=== PATIENT | female | born 1960 | race Caucasian/White ===

== ENCOUNTER 2024-03-04 07:00 | Outpatient (CLI) | payer OTHER, SELFPAY ==
--- NOTE | 2024-03-04 07:15 | CRLHL7_ITS ---
For Patients: As a result of the 21st Century Cures Act, medical imaging exams and procedure reports are released immediately into your electronic medical record. You may view this report before your referring provider. If you have questions, please contact your health care provider. EXAM: MRI OF THE RIGHT KNEE, WITHOUT CONTRAST CLINICAL INDICATION: Knee pain following injury. COMPARISON PLAIN FILMS: None available at time of interpretation. COMPARISON CROSS-SECTIONAL IMAGING STUDIES: None available at time of interpretation. TECHNICAL: Axial, sagittal and coronal T1, PD, PD FS and T2 FS images. Knee coil. FINDINGS: MEDIAL COMPARTMENT: Medial Meniscus: Slight fraying and volume loss in the free edge of the body of the medial meniscus. No linear tear in the substance of the medial meniscus. The root attachments are intact. Articular Cartilage: Articular surfaces appear smooth without focal articular cartilage defect or subchondral marrow changes. - LATERAL COMPARTMENT: Lateral Meniscus: Normal size and morphology without tear. Articular Cartilage: Articular surfaces appear smooth without focal articular cartilage defect or subchondral marrow changes. - PATELLOFEMORAL COMPARTMENT: Articular Cartilage: Moderate thinning with focal full-thickness fissuring in the inferior aspect of the trochlear groove with mild subchondral cystic change (grade 3-4). Mild chondral fraying in the patellar apex (grade 2). - CRUCIATE LIGAMENTS: Anterior Cruciate Ligament: Normal. Posterior Cruciate Ligament: Normal. - MEDIAL COLLATERAL LIGAMENT AND POSTEROMEDIAL CORNER COMPLEX: Medial Collateral Ligament: Normal. Medial Head of the Gastrocnemius and Semimembranosus Tendons: Normal. - LATERAL COLLATERAL LIGAMENT COMPLEX AND POSTEROLATERAL CORNER COMPLEX: Fibular Collateral Ligament: Normal. Distal Biceps Femoris Tendon Complex: Normal. Iliotibial Band: Normal. Popliteus Tendon: Normal. Posterolateral Corner Capsule: Normal. - EXTENSOR MECHANISM: Distal Quadriceps Tendon: Normal. Patellar Tendon: Normal. Medial Patellar Retinaculum and Medial Patellofemoral Ligament: Normal. Lateral Patellar Retinaculum: Normal. Normal patellar alignment. No patella mahi. Normal trochlear depth. Normal lateral trochlear inclination. - JOINT SPACE: Effusion: Trace joint effusion. Mild edema in the suprapatellar fat pad. Joint Bodies: None seen. - OSSEOUS STRUCTURES: No fracture, marrow edema or marrow replacement process. Benign bone island in the lateral femoral condyle. - PERIARTICULAR SOFT TISSUES: Periarticular Cysts or Ganglia: None. Bursae: No prepatellar, superficial infrapatellar, deep infrapatellar, pes anserinus or semimembranosus/MCL bursitis. Musculature: No muscle atrophy or muscle edema. Subcutaneous and Soft Tissues: No subcutaneous or soft tissue mass, edema or fluid collection. Neurovascular Structures: Normal. IMPRESSION: 1. Fraying and volume loss in the free edge of the body of the medial meniscus. 2. 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 3. Trace knee joint effusion. 4. Mild edema in the suprapatellar fat pad. Dictated by Cm Giang MD @ 03/04/2024 9:57:26 AM (Electronically Signed)
== END 2024-03-04 07:01 | disposition home or self-care (01) ==
LOC: MRI 07:00
PROVIDERS: PCP Internal Medicine; Visit Provider Internal Medicine
DX: M25.561 Pain in right knee (principal); M94.261 Chondromalacia, right knee; M25.461 Effusion, right knee; S89.91XA Unspecified injury of right lower leg, initial encounter
CPT/HCPCS: 73721

== ENCOUNTER 2024-03-04 08:31 | Outpatient (CLI) | payer OTHER, SELFPAY | END 2024-03-04 08:32 | disposition home or self-care (01) | LOC: NFLDREF 03-12 12:12 | PROVIDERS: PCP Internal Medicine; Referring Provider Internal Medicine; Visit Provider Internal Medicine | DX: E11.9 Type 2 diabetes mellitus without complications (principal) | CPT/HCPCS: 80053; 80061 ==

== ENCOUNTER 2024-04-01 13:35 | Outpatient (RCR) | payer OTHER, SELFPAY | END 2024-07-30 23:59 | disposition home or self-care (01) | PROVIDERS: PCP Internal Medicine; Visit Provider Orthopaedic Surgery | DX: M17.11 Unilateral primary osteoarthritis, right knee (principal); M25.561 Pain in right knee; Z51.89 Encounter for other specified aftercare | CPT/HCPCS: 97110; 97161 ==

== ENCOUNTER 2024-04-02 09:00 | Outpatient (CLI) | payer OTHER, SELFPAY | END 2024-04-02 09:01 | disposition home or self-care (01) | LOC: NFLDREF 04-04 03:04 | PROVIDERS: PCP Internal Medicine; Referring Provider Internal Medicine; Visit Provider Internal Medicine | DX: Z13.29 Encounter for screening for other suspected endocrine disorder (principal) | CPT/HCPCS: 84443 ==

== ENCOUNTER 2024-07-17 12:57 | Outpatient (CLI) | payer OTHER, SELFPAY ==
--- NOTE | 2024-07-17 13:00 | CRLHL7_ITS ---
For Patients: As a result of the Century Cures Act, medical imaging exams and procedure reports are released immediately into your electronic medical record. You may view this report before your referring provider. If you have questions, please contact your health care provider. Indication: Chronic sinusitis Technique: Performed without IV contrast Comparison: None available Findings: Frontal sinuses: Mild mucosal thickening bilaterally. Ethmoid sinuses: Postop changes ethmoidectomy. Maxillary sinuses: Postop changes. Mucous retention cyst right maxillary sinus measures approximately 2.5 cm. Moderate mucosal thickening within the right maxillary sinus. Xwec-fc-terpkiem mucosal thickening left maxillary sinus. Sinus drainage pathways are clear. Sphenoid sinuses: Clear, including both sphenoethmoidal recesses. Nasal Cavity: Postop changes. Hypertrophy of the inferior turbinate mucosa. No TMJ abnormalities identified. The visualized portions of the orbits, intracranial contents and upper soft tissue neck are grossly negative. Impression: 1. Postoperative changes. Sinus drainage pathways are patent. 2. Bilateral maxillary sinus disease with right-sided mucous retention cyst. Please note that all CT scans at this facility use dose modulation, iterative reconstruction, and/or weight-based dosing when appropriate to reduce radiation dose to as low as reasonably achievable. Dictated by Donnie Loza MD @ 07/17/2024 1:38:02 PM (Electronically Signed)
== END 2024-07-17 12:58 | disposition home or self-care (01) ==
LOC: CT 12:58
PROVIDERS: PCP Internal Medicine; Visit Provider Internal Medicine
DX: J32.9 Chronic sinusitis, unspecified (principal); J32.0 Chronic maxillary sinusitis
CPT/HCPCS: 70486

== ENCOUNTER 2024-10-27 08:05 | Outpatient (CLI) | payer OTHER, SELFPAY ==
--- NOTE | 2024-10-27 08:15 | CRLHL7_ITS ---
For Patients: As a result of the Century Cures Act, medical imaging exams and procedure reports are released immediately into your electronic medical record. You may view this report before your referring provider. If you have questions, please contact your health care provider. INDICATION: BILATERAL SCREENING MAMMOGRAM, ASYMPTOMATIC 64 Y/O FEMALE COMPARISON: 10/23/2018, 08/31/2016 TECHNIQUE: Digital mammogram in CC and MLO projections including computer-aided detection (CAD) and tomosynthesis. BREAST COMPOSITION: There are scattered areas of fibroglandular density. FINDINGS: No suspicious findings. ASSESSMENT: BI-RADS 1 Negative RECOMMENDATION: Annual screening mammogram. A lay language report of this examination will be provided to the patient. Dictated by: Donnie Loza MD @ 11/02/2024 10:28:22 (Electronically Signed)
== END 2024-10-27 08:06 | disposition home or self-care (01) ==
LOC: MAMMO 08:05
PROVIDERS: PCP Internal Medicine; Visit Provider Internal Medicine
DX: Z12.31 Encounter for screening mammogram for malignant neoplasm of breast (principal)
CPT/HCPCS: 77063; 77067

== ENCOUNTER 2024-10-30 07:25 | Day surgery (SDC) | payer OTHER, SELFPAY ==
[2024-10-30] VITALS (17 sets, daily range): BP systolic 91–119; BP diastolic 51–79; PULSE 16–74; RESP 11–17; TEMP 36.1–36.2; O2SAT 92–97; BMI 33.2
[2024-10-30] MEDS: SODIUM CHLORIDE 0.9 % (FLUSH) 10 ML SYRINGE IVF (08:10)
[2024-10-30] MEDS: LACTATED RINGERS 1000 ML 1,000 ML 100 ML IV (08:10)
--- NOTE | 2024-10-30 10:01 | P.ANES_ITS ---
Anesthesia Charges Start Date/Time Anesthesia Start Date: 10/30/24 Anesthesia Start Time: 09:34 Stop Date/Time Anesthesia Stop Date: 10/30/24 Anesthesia Stop Time: 10:18 Coding CPT Codes CPT Codes: ANESTH NOSE/SINUS SURGERY - 85295 ([id number]) P2 - PATIENT W/MILD SYST DISEASE, QK - MEDICAL OFFICE ADMINISTRATOR 2-4 CNCRNT ANES PROC, QX - SCRIPT EDITOR SVC W/ MD MED DIRECTION
--- NOTE | 2024-10-30 10:01 | W.ANESCHARGE ---
Anesthesia Charges Start Date/Time Anesthesia Start Date: 10/30/24 Anesthesia Start Time: 09:34 Stop Date/Time Anesthesia Stop Date: 10/30/24 Anesthesia Stop Time: 10:18 Coding CPT Codes CPT Codes: ANESTH NOSE/SINUS SURGERY - 38545 ([id number]) P2 - PATIENT W/MILD SYST DISEASE, QK - PROCESS CONTROL TECH 2-4 CNCRNT ANES PROC, QX - ROAD COMMISSIONER SVC W/ MD MED DIRECTION
--- NOTE | 2024-10-30 10:11 | W.PM.ENTPROC ---
Procedure Note Date of procedure: 10/30/24 Procedure: Preop diagnosis symptomatic right antral mucous retention cyst Postoperative diagnosis same Procedure right maxillary antrostomy with tissue removal and removal of right antral mucous retention cyst Under general endotracheal anesthesia patient was prepped and draped in usual fashion. Image guidance was verified. The nose was decongested with cocaine pledgets and then injected at the around the natural os and the anterior head of the right middle turbinate. The 0 degree endoscope was used to enter the sinus. The opening was partially occluded by polypoid tissue which was removed. Void forceps was then placed in through the natural os and the mucous retention cyst removed if Mom a mostly intact. Additional the polypoid mucosa was removed from the floor of the sinus. Dissolvable gel pack was placed in the middle meatus. The patient procedure well was taken recovery in satisfactory condition blood loss was less than 10 mL. Surgeon: Dennis Desai MD
--- NOTE | 2024-10-30 10:17 | P.ANES_ITS ---
Anesthesia Charges Start Date/Time Anesthesia Start Date: 10/30/24 Anesthesia Start Time: 09:34 Stop Date/Time Anesthesia Stop Date: 10/30/24 Anesthesia Stop Time: 10:18 Coding CPT Codes CPT Codes: ANESTH NOSE/SINUS SURGERY - 19679 ([id number]) P2 - PATIENT W/MILD SYST DISEASE, QK - RN PERITONEAL DIALYSIS 2-4 CNCRNT ANES PROC, QX - TRACK GRINDER OPERATOR SVC W/ MD MED DIRECTION
--- NOTE | 2024-10-30 10:17 | W.ANESCHARGE ---
Anesthesia Charges Start Date/Time Anesthesia Start Date: 10/30/24 Anesthesia Start Time: 09:34 Stop Date/Time Anesthesia Stop Date: 10/30/24 Anesthesia Stop Time: 10:18 Coding CPT Codes CPT Codes: ANESTH NOSE/SINUS SURGERY - 68870 ([id number]) P2 - PATIENT W/MILD SYST DISEASE, QK - MACARONI PRESS OPERATOR 2-4 CNCRNT ANES PROC, QX - ENGAGEMENT EXECUTIVE SVC W/ MD MED DIRECTION
[2024-10-30] MEDS: ONDANSETRON 2 MG/ML inj 4 MG IVP (10:26)
== END 2024-10-30 12:23 | disposition home or self-care (01) ==
PROVIDERS: PCP Internal Medicine; Visit Provider Otolaryngology
PROC: (CPT 31231; principal; 2024-10-30 08:45)
DX: J34.1 Cyst and mucocele of nose and nasal sinus (principal); J33.8 Other polyp of sinus
CPT/HCPCS: 31267; 00160; 88305; J0330; J1100; J1630; J2250; J2371; J2405; J2704; J3010; J3490; J7120

== ENCOUNTER 2025-01-12 07:56 | Outpatient (CLI) | payer OTHER, SELFPAY | END 2025-01-12 07:57 | disposition home or self-care (01) | LOC: NFLDREF 01-16 18:25 | PROVIDERS: PCP Internal Medicine; Referring Provider Internal Medicine; Visit Provider Internal Medicine | DX: E78.5 Hyperlipidemia, unspecified (principal) | CPT/HCPCS: 80061 ==

== ENCOUNTER 2025-02-09 21:02 | Emergency (ER) | payer OTHER, SELFPAY ==
[2025-02-09] VITALS (8 sets, daily range): BP systolic 115–128; BP diastolic 65–83; PULSE 84–107; RESP 20; TEMP 37.3; O2SAT 85–92; BMI 31.7
--- OUTSIDE RECORDS SUMMARY | 2025-02-09 21:04 | XMS_ITS | Clinical Summary ---
Author Organization [facility]ly [facility] Address [address] [address] Care Team Providers Care Welding Machine Operator Ultr[employer]ic Name Role Phone Marcie Munguia MD Primary Care Provider [phone] Source Comments You are receiving this document as you are listed as the primary care provider,follow-up provider, or the patient has been referred to you for consultation.This is in compliance with the Medicare andMedicaid EHR Incentive Program,which states Providers who transition their patient to another setting of careor provider of care or refers their patient to another provider of care shouldprovide summary care record for each transition of care or referral. [employer] TechnologiesNew [facility] CenterRound[facility] Allergies Active AllergyReactionsCriticalityNoted DateCommentsMolds & Smuts01/29/2011Other 06/09/2013 PN: Feathers Medications MedicationSigDispense QuantityRefillsLast FilledStart DateEnd DateStatus sertraline (ZOLOFT) 50 MG tablet Indications:Major depressive disorder, recurrent episode, moderate (HRC)TAKE 2 TABLETS BY MOUTH ONCE DAILY. 180 tablet ctive Biotin 5 MG Take 1 capsule by mouth daily (every 24 hours).08/15/2015Active fluticasone (FLONASE) 50 MCG/ACT nasal solution Place 2 sprays into each nostril daily (every 24 hours). Dose is for each nostril.08/15/2015Active ketoconazole (NIZORAL) 2 % shampoo Apply topically twice a week.08/15/2015Active polyethylene glycol (MIRALAX) packet Take 17 g by mouth daily (every 24 hours).08/15/2015Active docusate sodium (COLACE) 100 MG capsule Take 100 mg by mouth 2 times daily as needed for Constipation.08/15/2015Active ketoconazole (NIZORAL) 2 % cream Apply topically daily (every 24 hours).08/15/2015Active HYDROcodone-acetaminophen (NORCO) 5-325 MG tablet Take 1-2 tablets by mouth every 4 hours as needed. 30 tablet Active Active Problems ProblemNoted DateDiagnosed DateAcute pulmonary naxrphmb55/12/2014Fracture of 5th mwxbikvxaj52/12/4023Ylqcngho21/22/2012 Overview (10/10/2016): Headache(784.0) Incontinence of urine04/12/2011Disease of lung07/24/2010 Overview (10/10/2016): LW Modifier: CT due 04/2010 ; Pulmonary Nodule Solitary Disorder of liver07/24/2010 Overview (10/10/2016): LW Modifier: MRI 03/2010 ; Mass Hepatic Bsdghbh3307/24/2010Major depressive disorder, recurrent episode, moderate 01/02/2005 Overview (10/10/2016): Depression Major Recurrent Moderate Allergic /19/2005 Overview (10/10/2016): LW Onset: 83Qet87 ; Allergy Seasonal Hearing loss07/25/2002 Overview (10/10/2016): Hearing Loss NOS Obesity Resolved Problems ProblemNoted DateDiagnosed DateResolved LdauYxsuaxwhd32 Overview (10/10/2016): Varicella Zoster Normal vdedbntf24 Overview (10/10/2016): LW Modifier: x2 ; Normal Spontaneous Vaginal Delivery Immunizations ImmunizationAdministration DatesNext DueFlu Vac Preserv Free (3+yrs)12/24/2007 H1n1 Miv Sanofi 3+ Yr (Injected)03/24/2009HepB Adult (Engerix-B, 20+ yrs, 3 dose series)01/02/2005,05/24/1998HepB Ped/Adol (0-18 yrs)03/24/2009TDAP (ADACEL) 12/24/2007Td08/25/1996Zoster (Zostavax)08/26/2012 Family History Medical HistoryRelationNameCommentsCancer, ColonBirth FatherParkinsonsBirth FatherCancerBirth MotherlymhomaStrokeBirth Motherduring diagnosis of lymphoma Cardiovascular DiseaseMaternal Grandmotherstroke after lymphoma diagnosisCancer, BreastNegative Family HistoryDVT/PENegative Family HistoryRelationNameStatus CommentsBirth FatherDeceasedBirth MotherDeceasedMaternal GrandmotherOther Social History Tobacco UseTypesPacks/DayYears UsedDateSmoking Tobacco: NeverSmokeless Tobacco: NeverAlcohol UseStandard Drinks/WeekCommentsYes0.8 (1 standard drink = 0.6 oz pure alcohol)Alcoholic Drinks/day: Amount:1-2 drinks; Freq:=< Monthly; CommentsNoSex and Gender InformationValueDate RecordedSex Assigned at BirthNot on fileLegal NnuBmvbbf03/10/2012 4:33 AM CDTGender IdentityNot on fileSexual OrientationNot on fileOccupationIndustryJob Start DateJob End DateFinance industryNot on fileNot on fileNot on file Last Filed Vital Signs Vital SignReadingTime TakenCommentsBlood Xeorojfr888/8301/31/2016 12:14 PM OIL AND GAS FIELD TECHNICIAN Ylbkm349201/31/2016 12:14 PM ATXPyjynvyhcvm59.1 ??C (97 ??F)01/31/2016 12:14 PM CSTRespiratory Tarj544404/02/2015 12:14 PM CSTOxygen Evwrpvvptl11%07/02/2013 10:42 AM CDTInhaled Oxygen Concentration--Pzfnss210.4 kg (250 lb)08/17/2015 8:41 AM TOYQhwthm826.8 cm (5' 10)08/17/2015 8:41 AM CDTBody Mass Index35.8708/17/2015 8:41 AM CDT Plan of Treatment Health MaintenanceDue DateLast DoneCommentsHep C Screening (Preventive Services) 2Adult Preventive Visit02/23/19790182Aywgzqvbwls93, 05/16/2006HepB Vaccine (3), 01/02/2005, 05/24/1998 Pneumococcal Vaccine 50+ Yrs (1 of 1 - PCV)2011Cervical Cancer Screening Due, 03/24/2009, 12/24/2007, Additional history exists Zoster/Shingles Vaccine (2 of 3)Mammogram04/22/2014 04/22/2013, 05/03/2011, 03/24/2009, Additional history existsCholesterol , 03/24/2009, 09/29/2001DTaP/Tdap/Td Vaccine (2 - Tdap) , 08/25/1996COVID-19 Vaccine (1 - 2024- season)2024 Influenza Vaccine (#1)RSV Vaccine (1 - 1-dose 75+ series) 02/24/2036HIV Screening (Preventive Services)Gnvgviilu45/11/2004HepA VaccineAged OutNo longer eligible based on patient's age to complete this topicHib Vaccine Aged OutNo longer eligible based on patient's age to complete this topicIPV (Polio) VaccineAged OutNo longer eligible based on patient's age to complete this topicMCV4 VaccineAged OutNo longer eligible based on patient's age to complete this topicMeningococcal B VaccineAged OutNo longer eligible based on patient's age to complete this topic Procedures Procedure NamePriorityDate/TimeAssociated DiagnosisCommentsMM MAMMOGRAM SCREENING BILAT W AWPHfpojuo85/05/2014 8:18 AM OIL AND GAS FIELD TECHNICIAN Screening for breast cancer ANATOMICAL PATH LIQUID RTHKFPzwroam98/23/2012 3:05 PM OIL AND GAS FIELD TECHNICIAN LIPID PANEL & DIRECT LDL (IF NEEDED)Umfhmfb9907/18/2010 5:39 AM CDT ENDOSCOPY, COLON, SCREENING/PEFIUDXVLSMxkdqsb37/08/2010 5:48 PM CSTHIV ANTIBODY Hhysngu7211/29/2003 4:27 PM CDT from Last 3 Months or Most Recently Relevant to Health Maintenance Results * MM Mammogram Screening Bilat W CAD (04/22/2013 8:18 AM OIL AND GAS FIELD TECHNICIAN)Anatomical Region LateralityModalityBreastBilateralMammographySpecimen (Source)Anatomical Location / LateralityCollection Method / VolumeCollection TimeReceived Time Impressions 04/22/2013 9:04 AM OIL AND GAS FIELD TECHNICIAN : BIRADS 1 Negative (overall) Follow Up Mammogram in 1 year - Both The results and recommendations of this examination will be communicated to the patient by the [facility] and we will attempt to schedule any recommended imaging follow up with the patient. BJ Narrative 04/22/2013 9:04 AM OIL AND GAS FIELD TECHNICIAN Compared to: 05/03/2011 MM MAMMOGRAM DIGITAL SCRN W CAD, 03/24/2009 MM MAMMOGRAM DIGITAL SCRN W CAD, 06/07/2007 MM MAMMOGRAM DIGITAL SCRN W CAD Bilateral Breast Findings: The breasts are heterogeneously dense (51-75% fibroglandular). No significant mass, calcifications or other abnormalities are seen in either breast. Procedure Note Andrew Amado MD - 10/18/2015 Compared to: 05/03/2011 MM MAMMOGRAM DIGITAL SCRN W CAD, 03/24/2009 MM MAMMOGRAM DIGITAL SCRN W CAD, 06/07/2007 MM MAMMOGRAM DIGITAL SCRN W CAD Bilateral Breast Findings: The breasts are heterogeneously dense (51-75% fibroglandular). No significant mass, calcifications or other abnormalities are seen in either breast. IMPRESSION : BIRADS 1 Negative (overall) Follow Up Mammogram in 1 year - Both The results and recommendations of this examination will be communicated to the patient by the [facility] and we will attempt to schedule any recommended imaging follow up with the patient. BJ Authorizing ProviderResult TypeResult StatusLeslie A Trcka MDRAD MAMFinal Result * Pap Smear (04/12/2011 3:05 PM OIL AND GAS FIELD TECHNICIAN)Specimen (Source)Anatomical Location / LateralityCollection Method / VolumeCollection TimeReceived Time04/12/2011 3:05 PM OIL AND GAS FIELD TECHNICIAN Narrative HP CONVERSION - 04/18/2011 9:23 AM OIL AND GAS FIELD TECHNICIAN Final GYNECOLOGICAL CYTOLOGY REPORT Pathology #: [id number] ?Date Obtained: 04/12/2011 ? Date Received: 04/13/2011 INTERPRETATION/RESULTS: Negative for Intraepithelial Lesion or Malignancy SPECIMEN ADEQUACY: Satisfactory for Evaluation. ??Endocervical cells/transformation zone component present. Verified on 04/18/2011 ??by JAY MILLS(ASCP) (electronic signature) CLINICAL NOTES: ? LMP: not stated. LIQUID BASED PAP SMEAR SPECIMEN TYPE: ?CERVICAL WITH REFLEX TO HPV IF ASCUS PLEASE NOTE: The pap smear is a screening test designed to aid in the detection of cervical cancer and its precursor lesions. It is not a diagnostic procedure and should not be used as the sole means of detecting cervical cancer. Both false-positive and false-negative reports may occur. ? End of Report Authorizing ProviderResult TypeResult StatusSuad Dow MDLAB_1Final ResultPerforming OrganizationAddressCity/State/ZIP CodePhone Number HP CONVERSION * (ABNORMAL) Lipid Panel and Direct LDL(If Needed) (07/18/2010 5:39 AM CDT) ComponentValueRef RangeTest MethodAnalysis TimePerformed AtPathologist UeglntyvqUlkgnvvloco1696 - 200 mg/dLHP MDWWUNJEPAVdahhbbduewbq827 - 149 mg/dL HP CONVERSIONHDL Lwmyymlyskz91(L)>39 mg/dLHP CONVERSIONCholesterol/HDL Ratio Screen5.0No normal rangeHP CONVERSIONLDL Vpwjeumvek8441 - 130 mg/dLHP CONVERSIONSpecimen (Source)Anatomical Location / LateralityCollection Method / VolumeCollection TimeReceived Time07/18/2010 5:39 AM CDT Narrative Authorizing ProviderResult TypeResult StatusDastacy Carrillo MDLAB_1Final Result Performing OrganizationAddressCity/State/ZIP CodePhone Number HP CONVERSION * Endoscopy, colon, diagnostic (03/28/2009 5:48 PM OIL AND GAS FIELD TECHNICIAN)Anatomical Region LateralityModalityOtherSpecimen (Source)Anatomical Location / Laterality Collection Method / VolumeCollection TimeReceived Time Narrative Authorizing ProviderResult TypeResult StatusUser ConversionET GI PROCEDURE ORDERABLESFinal Result * HIV Antibody (11/29/2003 4:27 PM CDT)ComponentValueRef RangeTest Method Analysis TimePerformed AtPathologist SignatureHIV 1/HIV 2Non ReacNon ReacHP CONVERSIONSpecimen (Source)Anatomical Location / LateralityCollection Method / VolumeCollection TimeReceived Time11/29/2003 4:27 PM CDT Narrative Authorizing ProviderResult TypeResult StatusTricia L Zubert ELECTRIC RANGE PREPARER, CNPLAB_1Final ResultPerforming OrganizationAddressCity/State/ZIP CodePhone Number HP CONVERSION from Last 3 Months or Most Recently Relevant to Health Maintenance Insurance * Guarantor: Evita Martin TypeRelation to PatientDate of BirthPhone Billing AddressPersonal/MwtopdElgf02/06/1961 [phone] (Work) [address] [place] [address] [place] [address] * Guarantor: Evita Martin TypeRelation to PatientDate of BirthPhone Billing AddressPersonal/FdfnubWtlo56/06/1961 [phone] (Work) [address] [place] [address] * Guarantor: [id number] TypeRelation to PatientDate of BirthPhone Billing AddressMVA/OOVAodn1960 [phone] (Work) [address] [place] [address] * Guarantor: Evita Martin TypeRelation to PatientDate of BirthPhone Billing AddressMVA/RFQWmbh31 1960 [phone] (Work) [address] [place] [address] * Guarantor: Evita Martin TypeRelation to PatientDate of BirthPhone Billing AddressWorkers UznkNcsz42/06/1961 [phone] (Work) [address] [place] [address] Advance Directives * Full Code (Latest Code Status on File) Date ActivatedDate InactivatedComments08/17/2015 10:35 AM08/17/2015 2:16 PM * Full Code Date ActivatedDate InactivatedComments06/29/2013 9:15 PM07/02/2013 6:08 PM Care Teams Team MemberRelationshipSpecialtyStart DateEnd Date Marcie Munguia MD [address] [place] [address] [facility]05/21/10
--- OUTSIDE RECORDS SUMMARY | 2025-02-09 21:04 | XMS_ITS | Clinical Summary ---
Author Organization [facility] Address [address] [address] Phone Care Team Providers Care Automation Qtp Tester Name Role Phone Víctor Bergman APRN, ANIMAL SHELTER SUPERVISOR Primary Care Provi xochilt Evita Mckeon MD Unavailable [phone] Allergies Active AllergyReactionsCriticalityNoted IgbmQablvnqnLeirveinuugfc55/20/2016 Mold and feathers per patient report, based on allergy testing. Medications MedicationSigDispense QuantityRefillsLast FilledStart DateEnd DateStatus sertraline (Zoloft) 100 MG tablet Indications:AnxietyTake 1 Tab by mouth one time a day. 90 Tab Active ketoconazole (Nizoral) 2 % shampoo Indications:Seborrheic eczema of scalpAPPLY EXTERNALLY TO THE AFFECTED AREA EVERY 72 HOURS. LEAVE ON FOR 5 MINUTES, THEN RINSE 6 Bottle 11011/17/2019Active Active Problems Patient Care Coordination No te Formatting of this note migh t be different from the original. Abnormal pap follow up: 10/2019 - due for cotesting 10/2022 ProblemNoted DateDiagnosed DateHistory of abnormal cervical Pap smear09/25/2018 Overview (11/24/2019): 05/2014:NILM,HPV negative 08/2018: LGSIL, HPV negative 10/2019:NILM,HPV negative Hammer toe of right foot08/01/2015Seborrheic eczema of scalp06/08/2015 Hypovitaminosis D006/08/20153252Ovvzgby05/29/2518Yaqqodawotiinh67/29/2014 Resolved Problems ProblemNoted DateDiagnosed DateResolved DateHammer toeBurn involving less than 10% of body ezeikzs45 Immunizations ImmunizationAdministration DatesNext DueHepatitis B, Adult03/24/2009,01/02/2005, 05/24/1998Influenza Quad Preservative Free11/17/2019Tdap (7 years and older) 03/20/2018,12/24/2007,08/25/1996Zoster Zostavax (Shingles)08/26/2012 Surgical History SurgeryDateSite/LateralityCommentsFOOT ZOUUCNC6206/02/2014Lecharly White [place]aux, had screws TONSILLECTOMY as a child SINUS SURGERY Kathleen Gutierrez, timefrtodd unknown FOOT ONHIPUX4708/03/2015Right Kathleen Fields COLONOSCOPY10/22/2018N/A Procedure: COLONOSCOPY DIAGNOSTIC; Surgeon: Merissa Martinez MD; Location: [facility] Medical History Medical HistoryDateCommentsDVT (deep venous thrombosis) (HCC)2014Following foot surgeryPE (pulmonary embolism)2014Following foot surgery Family History Medical HistoryRelationCommentsColon CancerFatherParkinson's DiseaseFather LymphomaMotherOtherMotherCVANo Known ProblemsSon 1No Known ProblemsSon 2Breast CancerNegative Family HxRelationStatusCommentsBrotherOtherHealth history/status is unknownFatherDeceased (Age 82)Passed due to Parkinson'sMotherDeceasedSon 1 AliveSon 2Alive Social History Tobacco UseTypesPacks/DayYears UsedDateSmoking Tobacco: NeverSmokeless Tobacco: NeverAlcohol UseStandard Drinks/WeekCommentsYes2 (1 standard drink = 0.6 oz pure alcohol)PHQ-2AnswerDate RecordedPHQ-2 Psrav374CommentsNoSex and Gender InformationValueDate RecordedSex Assigned at BirthNot on fileLegal Sex Cheqkp1002/15/2014 3:18 PM CSTGender IdentityNot on fileSexual OrientationNot on file Obstetrics History GravidaParaTermPretermABIABSABEctopicMolarMultipleLivingLive Ynrcia55JkepBxzhwal GATotal LaborLabor/2nd/4guEqzlwkStxGrvyMdtmNQTXycF6Y4XjclCdhsVcctBgny Last Filed Vital Signs Vital SignReadingTime TakenCommentsBlood Bianzxmp580/8311/17/2019 2:23 PM CDT Vhehg9495/29/2020 2:23 PM IWKXcnxusrtuhu60.9 ??C (96.6 ??F)11/17/2019 2:23 PM CDTRespiratory Gofw789510/22/2018 9:26 AM CDTOxygen Nhkvvnwxtz33%10/22/2018 9:26 AM CDTInhaled Oxygen Concentration--Lnifim157.2 kg (278 lb 3.5 oz)11/17/2019 2:23 PM MVXZnudpn893.5 cm (5' 9.5)11/17/2019 2:23 PM CDTBody Mass Index40.5 11/17/2019 2:23 PM CDT Plan of Treatment Health MaintenanceDue DateLast DoneCommentsCT Ggehceymnbll91/06/1962Cologuard 1961FIT/FOBT1950Aplrlfbfmctxk13/06/1962Pneumococcal Vaccine: 50+ yrs (Standing Order) (1 of 1 - PCV)2011RSV Vaccination (60+ yrs) (Abrysvo/Arexvy) (1 - Risk 50-74 years 1-dose series)2011Shingrix (Zoster recombinant) vaccine (Standing Order) (1 of 2)10/21/2012MAMMO,NLKEDT1810/23/2019 10/23/2018, 08/31/2016, 04/22/2013, Additional history existsCervical CA Screening (Pap), 09/17/2018, 06/15/2014COLONOSCOPY Q 5 YRS , 10/22/2018COVID-19 Vaccine ( - 2024- season)2024 Influenza Vaccine Seasonal (Standing Order) (#1)TETANUS (Standing Order), 12/24/2007, 08/25/1996Colonoscopy , 10/22/2018Colorectal Cancer Screening (consider Cologuard where access is limited)10/22/2028Hepatitis B Vaccine (Standing Order)Completed 03/24/2009, 01/02/2005, 05/24/1998PERTUSSIS (Standing Order)Acyqoliyl55/31/2019, 12/24/2007, 08/25/1996HPV Vaccine (Standing Order) (No Doses Required)Completed Procedures Procedure NamePriorityDate/TimeAssociated DiagnosisCommentsPAP, LIQUID BASED Tdjmsto3111/17/2019 3:11 PM CDT Screening for cervical cancer MAMM YASMEEN SCREEN DIGITAL ZKBLWUxjfxqo21/05/2019 11:26 AM CDT Screening for breast cancer COLONOSCOPY DADWBLUQA33/04/2019 8:20 AM CDT from Last 3 Months or Most Recently Relevant to Health Maintenance Results * PAP, LIQUID BASED (11/17/2019 3:11 PM CDT)ComponentValueRef RangeTest Method Analysis TimePerformed AtPathologist SignatureCase ReportGynecologic Cytology Report ? Case: [id number] ? Authorizing Provider: ??Víctor Bergman APRN, Collected: ? 11/17/2019 1511 ? ANIMAL SHELTER SUPERVISOR ? Ordering Location: ? [facility] ? Received: ?11/17/2019 1511 ? Family Practice ? First Screen: ?Donnie Jerry ? Pathologist: ? Nila Noel MD ? Specimen: ?LIQUID-BASED PAP, Cervix ? 11/18/2019 12:25 PM [facility]ATORYGynecologic Cytology Interpretation, SurePath CollectionNegative for Intraepithelial Lesion or Malignancy.11/18/2019 12:25 PM [facility] at 1225 CDTSpecimen AdequacySatisfactory for evaluation, endocervical/transformation zone component is present.11/18/2019 12:25 PM [facility] LABORATORYPap DisclaimerNote: The Pap test is a screening procedure and is not, by itself, diagnostic. False negatives and positives do occur. Correlation with clinical findings, history and a program of regular examinations including Pap tests is warranted to help detect cancers and precursor lesions of the female genital tract. 11/18/2019 12:25 PM CDTEH [facility] LABORATORYSpecimen (Source)Anatomical Location / LateralityCollection Method / VolumeCollection TimeReceived TimeBrush/BroomVAGINAL CERVIX / UnknownNon-blood collection / Bafzkna8011/17/2019 3:11 PM CDT11/17/2019 3:11 PM CDT Narrative Authorizing ProviderResult TypeResult StatusVíctor Bergman APRN, CNPEC PATHOLOGY ORDERABLESFinal ResultPerforming OrganizationAddressCity/State/ZIP CodePhone Number [facility] [address] * MAMM YASMEEN SCREEN DIGITAL BILAT (10/23/2018 11:26 AM CDT)Anatomical Region LateralityModalityBreastBilateralMammographySpecimen (Source)Anatomical Location / LateralityCollection Method / VolumeCollection TimeReceived Time 10/23/2018 11:26 AM CDT Narrative 10/24/2018 3:59 PM CDT This document is currently in Final Status Exam MAMM YASMEEN SCREEN DIGITAL BILAT HISTORY: Screening. ? COMPARISON: Prior exams. TECHNIQUE: Digital breast tomosynthesis technique performed. ??C views and 3D source images in the CC and MLO projections reviewed. Computer-Aided Detection system was utilized. BREAST DENSITY: The breast tissue is heterogeneously dense, which may obscure small masses. FINDINGS: ??There has been no significant change from prior studies. IMPRESSION: ??No mammographic evidence of malignancy. ?? RECOMMENDATIONS: Annual screening mammography is recommended per [employer] guidelines. BI-RADS 1: Negative. Your mammogram shows that your breast tissue is dense. Dense breast tissue is relatively common andis found in more than 40% of women. However, dense breast tissue may make it more difficult to identify precancerous lesions or cancer through a mammogram and may also be associated with an increasedrisk of breast cancer. This information about the results of your mammogram is given to you to raise your own awareness and to help inform your conversations with your treating clinician who has received a report of your mammogram results. Together you can decide which screening options are right for you based on your mammogram results, individual risk factors, or physical examination. Dictated By: Juan Garcia MD 10/23/2018 1:45 PM Edited By: EDUARDO 10/23/2018 2:30 PM Electronically Signed: Juan Garcia MD 10/24/2018 3:59 PM Procedure Note Juan Garcia MD - 10/24/2018 This document is currently in Final Status Exam MAMM YASMEEN SCREEN DIGITAL BILAT HISTORY: Screening. COMPARISON: Prior exams. TECHNIQUE: Digital breast tomosynthesis technique performed. C views and3D source images in the CC and MLO projections reviewed. Computer-Aided Detection system was utilized. BREAST DENSITY: The breast tissue is heterogeneously dense, which mayobscure small masses. FINDINGS: There has been no significant change from prior studies. IMPRESSION: No mammographic evidence of malignancy. RECOMMENDATIONS: Annual screening mammography is recommended per [employer] guidelines. BI-RADS 1: Negative. Your mammogram shows that your breast tissue is dense. Dense breast tissueis relatively common and is found in more than 40% of women. However,dense breast tissue may make it more difficult to identify precancerouslesions or cancer through a mammogram and may also be associated with anincreased risk of breast cancer. This information about the results ofyour mammogram is given to you to raise your own awareness and to helpinform your conversations with your treating clinician who has received areport of your mammogram results. Together you can decide which screeningoptions are right for you based on your mammogram results, individual riskfactors, or physical examination. Dictated By: Juan Garcia MD 10/23/2018 1:45 PM Edited By: EDUARDO 10/23/2018 2:30 PM Electronically Signed: Juan Garcia MD 10/24/2018 3:59 PM Authorizing ProviderResult TypeResult StatusVíctor Bergman APRN, CNPEC MAMMOGRAPHY ORDERABLESFinal Result * COLONOSCOPY PROCEDURE (10/22/2018 8:20 AM CDT)ComponentValueRef RangeTest MethodAnalysis TimePerformed AtPathologist SignatureColonoscopy ProcedureSt. [facility] Patient Name: Evita Martin ? Date of : 1960 ? Patient Status: Outpatient Age: 58 ? Gender: Female Race: White ? Note Status: Finalized Procedure Date No Time: 10/22/2018 ? Procedure: ? Colonoscopy Endoscopist: ? MERISSA MARTINEZ MD Referring : ?VÍCTOR BERGMAN APRN, ANIMAL SHELTER SUPERVISOR Indications: ? High risk colon cancer surveillance: Personal history ? of non-advanced adenoma Procedure Medications: Midazolam 5 mg IV, Fentanyl 50 micrograms IV Procedure: ? Pre-Anesthesia Assessment: ? - ASA Grade Assessment: I - A normal, healthy patient. ? - Prior Anticoagulants: The patient has taken no ? previous anticoagulant or antiplatelet agents. ? - Potential procedural risks, benefits and ? alternatives were explained to the patient including: ? drug reactions, bleeding, perforation, and missing ? important lesions. Informed consent was confirmed and ? the patient was deemed in satisfactory condition to ? undergo the procedure. Throughout the procedure, the ? patient's blood pressure, pulse, and oxygen ? saturations were monitored continuously. The Olympus ? pediatric variable stiffness scope was passed under ? direct vision through the anus and advanced to the the ? cecum, identified by appendiceal orifice and ileocecal ? valve. The colonoscopy was performed without ? difficulty. The patient tolerated the procedure well. ? The quality of the bowel preparation was good. The ? ileocecal valve, appendiceal orifice, and rectum were ? photographed. ? Findings: ?The entire examined colon appeared normal on direct ? and retroflexion views. ? Multiple diverticula were found in the sigmoid colon ? and transverse colon. Complications: ? No immediate complications. Moderate Sedation: ? Moderate (conscious) sedation was personally administered by the ? endoscopist. The following parameters were monitored: oxygen saturation, ? heart rate, blood pressure, and response to care. Total physician ? intraservice time was 13 minutes. Impression: ?- The entire examined colon is normal on direct and ? retroflexion views. ? - Diverticulosis in the sigmoid colon and in the ? transverse colon. ? - No specimens collected. Recommendation: ?- Patient has a contact number available for ? emergencies. The signs and symptoms of potential ? delayed complications were discussed with the patient. ? Return to normal activities tomorrow. Written ? discharge instructions were provided to the patient. ? - Resume previous diet. ? - Continue present medications. ? - Repeat colonoscopy in 5 years for surveillance. Merissa Martinez M.D. MERISSA MARTINEZ MD 10/22/2018 8:50:58 AM This report has been signed electronically. ? [address] [address] Procedure ReportESSENTIA LABORATORYSpecimen (Source)Anatomical Location / LateralityCollection Method / VolumeCollection TimeReceived Time10/22/2018 8:20 AM CDT Narrative Authorizing ProviderResult TypeResult StatusMerissa Martinez MDEC PROCEDURESFinal ResultPerforming OrganizationAddressCity/State/ZIP CodePhone Number [facility] from Last 3 Months or Most Recently Relevant to [place] [address] Care Teams Team MemberRelationshipSpecialtyStart DateEnd Date Víctor Bergman APRN, GI [address] [place] [address] PCP - GeneralFamily Medicine09/15/14 Evita Mckeon MD [address] [place] [address] [phone] PCP - PC TeamFamily Medicine08/29/16
--- NOTE | 2025-02-09 21:35 | ED_ITS ---
HPI - General Adult General Chief complaint: Shortness of Breath/Dyspnea Stated complaint: pneumonia Time Seen by Provider: 02/09/25 21:35 History of Present Illness HPI narrative: Pt was diagnosed with pneumonia on Saturday at [facility] Urgent care. Pt was put on amoxicillin. Pt states shortness of breath is getting worse. Pt also feels weak and feverish. Pt states I feel like I am about to pass out in triage. 64-year-old woman presenting to the emergency department with concern of more shortness of breath. Has been measuring a temperature between 99 something to 101 during last few days. Has not measured a temperature today. Seen 6 days ago in clinic with cough and was given albuterol inhaler. Followed up 3 days later in clinic and suspected of community-acquired pneumonia and initiated on amoxicillin 1000 mg t.i.d.. Is not having chest pain. Has been feeling nauseated. Was feeling more lightheaded today. Son was measuring home O2 at 84-86%. Arrives here at 92%. During our conversation is around 94% once blood pressure cuff let down. Related Data Home Medications ?Medication ?Instructions ?Recorded ?Confirmed tirzepatide 15 mg/0.5 mL 17 mg subcut .twice a week 1 04/13/23 02/09/25 subcutaneous pen injector Previous Rx's ?Medication ?Instructions ?Recorded sertraline 100 mg tablet 100 mg PO QDAY #90 tabs 03/21 11/12 albuterol sulfate 90 mcg/actuation 2 puff inhalation Q ID #6.7 grams 02/03/25 aerosol inhaler amoxicillin 500 mg capsule 1,000 mg (2 x 500 mg) PO TI D 5 02/08/25 days #30 caps Allergies Allergy/AdvReac Type Severity Reaction Status Date / Time No Known Drug Allergies Allergy Verified 02/09/25 21:18 Review of Systems Status of ROS: Reports: 6 or more systems reviewed and unremarkable except as noted in History and below [facility] Medical History Cough ?R05.9 - Cough, unspecified (ICD-10) Sinusitis ?J32.9 - Chronic sinusitis, unspecified (ICD-10) Knee injury ?S89.90XA - Unspecified injury of unspecified lower leg, initial encounter (ICD-10) Obesity ?E66.9 - Obesity, unspecified (ICD-10) Anxiety ?F41.9 - Anxiety disorder, unspecified (ICD-10) Hyperlipidemia ?E78.5 - Hyperlipidemia, unspecified (ICD-10) Surgical History Status post foot surgery ?Z98.890 - Other specified postprocedural states (ICD-10) Hx of sinus surgery ?Z98.890 - Other specified postprocedural states (ICD-10) History of tonsillectomy ?Z90.89 - Acquired absence of other organs (ICD-10) Social History What is your current living situation?: I presently have a place to live Problems where you live: no known problems In the past 12 months, utilities in danger of being shut off: no In past 12 months, lack of transportation kept you from medical appts, meetings, work, or getting things needed for daily living: no In the past 12 mos, have been you worried that your food would run out before you had money to buy more?: never true In the past 12 mos, the food you bought just didn't last and you didn't have money to buy more?: never true Smoking Status: Never smoker Do you use any of these nicotine containing products: None How often do you have a drink containing alcohol: never How often do you have six or more drinks on one occasion: Never AUDIT-C Alcohol total score: 0 Non-prescribed substance use: denies use Caffeine: Yes How often does anyone, including family, friends and others, physically hurt you : never How often does anyone, including family, friends and others, insult or talk down to you: never How often does anyone, including family, friends and others, threaten you with harm: never How often does anyone, including family, friends and others, scream or curse at you: never Are you using contraception or practicing any form of control: No Exam Narrative: Exam Narrative: Appears tired. Easily conversant. Breathing mildly labored in breathing but not tachypneic. Nasopharyngeal congestion. Cough with deep inspiratory effort. Lungs actually sound clear. Cranial nerves 2-12 are intact. Heart in elevated rate and regular rhythm. Abdomen soft nontender. Extremities well perfused without edema. Const: Vital Signs, click to edit/add: Vital Signs - 24 hr 02/09/25 21:18 02/09/25 21:31 02/09/25 21:47 Temperature 99.2 F Pulse Rate 104 H 105 H Pulse Rate [Right Pulse Oximeter] 107 H Respiratory Rate 20 Blood Pressure 115/79 115/82 Blood Pressure [Ri ght Upper Arm] 128/83 Pulse Oximetry 92 89 92 Oxygen Delivery Me thod Room Air 02/09/25 22:01 02/09/25 22:31 02/09/25 22:47 Temperature Pulse Rate 87 84 85 Pulse Rate [Right Pulse Oximeter] Respiratory Rate Blood Pressure 120/74 128/65 126/68 Blood Pressure [Ri ght Upper Arm] Pulse Oximetry 92 87 L 85 L Oxygen Delivery Me thod 02/09/25 23:01 02/09/25 23:16 02/10/25 01:15 Temperature 98.2 F Pulse Rate 86 84 Pulse Rate [Right Pulse Oximeter] 98 Respiratory Rate 19 Blood Pressure 120/68 125/66 Blood Pressure [Ri ght Upper Arm] 115/73 Pulse Oximetry 85 L 88 90 Oxygen Delivery Me thod Room Air Documenting provider has reviewed patient's vital signs: yes Course Vital Signs Vital signs: Initial Vital Signs Temperature 99.2 F 02/09/25 21:18 Temperature Source Temporal Artery Scan 02/09/25 21:18 Pulse Rate 107 H 02/09/25 21:18 Pulse Rhythm Regular 02/09/25 21:18 Respiratory Rate 20 02/09/25 21:18 Blood Pressure 128/83 02/09/25 21:18 Blood Pressure Mean 98 02/09/25 21:18 Blood Pressure Position Supine 02/09/25 21:18 Pulse Oximetry 92 02/09/25 21:18 Oxygen Delivery Method Room Air 02/09/25 21:18 Vital Signs Temperature 99.2 F 02/09/25 21:18 Pulse Rate 107 H 02/09/25 21:18 Respiratory Rate 20 02/09/25 21:18 Blood Pressure 128/83 02/09/25 21:18 Pulse Oximetry 92 02/09/25 21:18 Oxygen Delivery Method Room Air 02/09/25 21:18 Temperature 98.2 F 02/10/25 01:15 Pulse Rate 98 02/10/25 01:15 Respiratory Rate 19 02/10/25 01:15 Blood Pressure 115/73 02/10/25 01:15 Pulse Oximetry 90 02/10/25 01:15 Oxygen Delivery Method Room Air 02/10/25 01:15 Medications Administered Medications: Discontinued Medications Generic Name Dose Route Start Last Admin Trade Name Freq PRN Reason Stop Dose Admin Sodium Chloride 1,000 mls @ 1,000 mls/hr 02/09/25 21:51 02/09/25 23:29 0.9 % Sodium Chloride 1000 Ml IV 02/09/25 22:50 Infused .Q1H ONE Infusion Ceftriaxone Sodium 2 gm/ 100 mls @ 200 mls/hr 02/09/25 23:14 02/10/25 00:28 Sodium Chloride IVPB 02/09/25 23:43 Infused ONCE ONE Infusion Sodium Chloride 1,000 mls @ 1,000 mls/hr 02/09/25 23:25 02/10/25 01:16 0.9 % Sodium Chloride 1000 Ml IV 02/10/25 00:24 Infused .Q1H ONE Infusion Ondansetron HCl 4 mg 02/09/25 21:52 02/09/25 22:18 Ondansetron 2 Mg/Ml Inj IVP 02/09/25 21:53 4 mg ONCE ONE Administration Medical Decision Making MDM Narrative Medical decision making narrative: I did review records indicating suspicion recent pneumonia. I would have concerns of monotherapy with amoxicillin. Would recheck imaging and standard labs. She is quite thirsty would appreciate some hydration. Considering community prevalence screen for COVID influenza again. IV hydration with normal saline. White count is actually little improved. CRP is rather elevated. Chest x-ray by my independent review looks to be with more patchy infiltrative process. I did check a D-dimer unfortunately this was elevated at little over 1. Reviewing history again apparently she has had pulmonary embolus some years ago. We will be proceeding with CT imaging of the chest. CT chest with diffuse infiltrates. Radiology over-read below COMPARISON: Chest x-ray 02/09/2025. FINDINGS: Heart and vasculature: No pulmonary embolism identified. Main pulmonary artery normal in caliber. No thoracic aortic aneurysm. Mild cardiomegaly. No pericardial effusion. No CT evidence of acute right heart strain. Lungs and pleura: Trace bilateral pleural effusions. Prominent diffuse bilateral micronodularity and nodular/consolidative opacities. Mild interlobular septal thickening. No pneumothorax. Patent central airways. Diffuse bronchial wall thickening with bilateral distal endobronchial mucous plugging. Lymph nodes/mediastinum: Prominent mediastinal and bilateral hilar lymph nodes. Chest wall: No suspicious chest wall mass or fluid collection. Upper abdomen: No acute abnormality. Bones: No acute abnormality. IMPRESSION: 1. No pulmonary embolism. 2. Diffuse bilateral pulmonary micronodularity and nodular/consolidative opacities, indicative of multifocal infectious/inflammatory process with additional mild diffuse bronchial wall thickening and distal endobronchial mucous plugging. Recommend follow-up CT chest following therapy to assess for resolution and exclude underlying neoplastic process. 3. Cardiomegaly with trace bilateral pleural effusions and mild interlobular septal thickening which may reflect mild superimposed pulmonary edema. 4. Prominent mediastinal and bilateral hilar lymph nodes, likely reactive. Attention on follow-up imaging recommended. Please note that all CT scans at this facility use dose modulation, iterative reconstruction, and/or weight-based dosing when appropriate to reduce radiation dose to as low as reasonably achievable. Dictated by Olivier Alcaraz MD @ 02/10/2025 12:19:53 AM Discussed all findings with Evita and her son. Given initial dosing of Rocephin. On reassessment does feel improved and in sleep oxygenation drips to as low as 88%. While awake between 90-94%. Discussed potential admission for what appears to be worsening pneumonia. The mutually agreed to have ago evident and return if needed. Also expand antibiotic coverage to cover atypicals. See patient discharge plan for further discussion Stay well-hydrated. Your received Rocephin and IV fluids here in the emergency department. Would like you to continue the course amoxicillin you were prescribed a couple of days ago and I would like to add azithromycin to your course of amoxicillin. Prescribing this from [facility]. Consider also nasal decongestants like pseudoephedrine or temporary use of Dristan or Afrin; might help you breathe a little better. Please return to the emergency department for persistent increasing shortness of breath, worsening chest pain or lightheadedness, increasing fever. Please otherwise follow-up in primary care in 2 - 3 weeks and consider reimaging at some point to confirm resolution. Medical Records Medical records reviewed: Yes I reviewed the patient's medical records Lab Data Lab results reviewed: Yes I reviewed the patient's lab results Labs: Lab Results 02/09/25 Range/Units 22:05 WBC 11.32 H (4.50-11.00) K/uL RBC 4.62 (4.00-5.20) m/uL Hgb 12.3 (12.0-16.0) gm/dL Hct 38.3 (33.0-51.0) % MCV 83 (80-100) fL MCH 27 (26-34) pg MCHC 32 (32-36) gm/dL RDW Coeff of Rajat 12.0 (11.5-15.5) % Plt Count 475 H (140-440) K/uL Neut % (Auto) 71.7 (42.0-72.0) % Lymph % (Auto) 15.8 L (20-44) % Carolina % (Auto) 8.7 (0.0-11.0) % Eos % (Auto) 1.9 (0.0-7.0) % Baso % (Auto) 0.2 (0.0-3.0) % Neut # (Auto) 8.10 H (1.7-7.0) K/uL Lymph # (Auto) 1.80 (0.90-2.90) K/uL Carolina # (Auto) 1.00 H (0.00-0.90) K/UL Eos # (Auto) 0.20 (0.00-0.50) K/uL Baso # (Auto) 0.00 (0.00-0.30) K/uL Abs Immat Gran (auto) 0.20 (0.00-0.30) K/uL Imm/Tot Granulo (auto) 1.7 % D-Dimer Quant (PE/DVT) 1.07 H (0.00-0.50) ug/ml Sodium 133 L (135-149) mmol/L Potassium 4.0 (3.6-5.1) mmol/L Chloride 100 (96-114) mmol/L Carbon Dioxide 27 (20-32) mmol/L Anion Gap 6 L (7-15) mEq/L BUN 15 (7-30) mg/dL Creatinine 0.8 (0.5-1.5) mg/dL Estimated Creat Clear 62.27 Estimated GFR 83 ml/min Glucose 111 (60-115) mg/dL Calcium 8.5 (8.4-10.6) mg/dL Total Bilirubin 0.5 (0.1-1.5) mg/dL Direct Bilirubin 0.3 (0.0-0.5) mg/dL AST 39 H (12-35) U/L ALT 74 H (4-35) U/L Alkaline Phosphatase 700 H (40-150) U/L C-Reactive Protein 16.6 H (0.5-1.0) mg/dL Total Protein 6.5 (6.0-8.3) g/dL Albumin 3.4 (3.3-5.0) g/dL SARS-CoV-2 (PCR) Negative SARS-CoV-2 (Negative) Influenza Type A (PCR) Negative PCR FLU A (Negative) Influenza Type B (PCR) Negative PCR FLU B (Negative) RSV (PCR) Negative PCR RSV (Negative) Discharge Plan Discharge Clinical Impression: Pneumonia, Hypoxia Patient Disposition: Home w/ Parent or Adult Condition: Stable Additional Instructions: Stay well-hydrated. Your received Rocephin and IV fluids here in the emergency department. Would like you to continue the course amoxicillin you were prescribed a couple of days ago and I would like to add azithromycin to your course of amoxicillin. Prescribing this from [facility]. Consider also nasal decongestants like pseudoephedrine or temporary use of Dristan or Afrin; might help you breathe a little better. Please return to the emergency department for persistent increasing shortness of breath, worsening chest pain or lightheadedness, increasing fever. Please otherwise follow-up in primary care in 2 - 3 weeks and consider reimaging at some point to confirm resolution. Prescriptions: No Action amoxicillin 500 mg capsule 1,000 mg PO TID 5 Days Qty: 30 0RF tirzepatide 15 mg/0.5 mL pen injector 17 mg subcut .twice a week Rx Instructions: Saturday and Saturday patient takes medication albuterol sulfate 90 mcg/actuation HFA aerosol inhaler 2 puff inhalation QID Qty: 6.7 3RF sertraline 100 mg tablet 100 mg PO QDAY Qty: 90 3RF Follow Up/Referrals: Diomedes Kevin MD [Primary Care Provider, Internal Medicine] Stand Alone Forms: [facility] Info Instructions
--- NOTE | 2025-02-09 21:51 | CRLHL7_ITS ---
For Patients: As a result of the Cures Act, medical imaging exams and procedure reports are released immediately into your electronic medical record. You may view this report before your referring provider. If you have questions, please contact your health care provider. Indication: Increasing shortness of breath. Recent pneumonia. Technique: Two views of the chest Comparison: Chest x-ray 02/08/2025. Findings/Impression: Bilateral patchy airspace opacification, slightly increased compared to previous radiographs concerning for infectious/inflammatory process. No pleural effusion or pneumothorax. No cardiomegaly. No acute osseous abnormality. Dictated by Olivier Alcaraz MD @ 02/09/2025 11:09:49 PM (Electronically Signed)
[2025-02-09] MEDS: ONDANSETRON 2 MG/ML inj 4 MG IVP (22:18)
[2025-02-09 22:36] LABS: Albumin* 3.4 g/dL (3.3-5.0); Chloride* 100 mmol/L (96-114); Hematocrit* 38.3 % (33.0-51.0); Hemoglobin* 12.3 gm/dL (12.0-16.0); Immature Granulocytes Pct Auto 1.7 %; Mean Corpuscular HGB Conc 32 gm/dL (32-36); Mean Corpuscular Hemoglobin 27 pg (26-34); Mean Corpuscular Volume 83 fL (80-100); Potassium* 4.0 mmol/L (3.6-5.1); RDW Coefficient of Variation % 12.0 % (11.5-15.5); Red Blood Count* 4.62 m/uL (4.00-5.20); Sodium* 133 mmol/L (135-149); White Blood Count* 11.32 K/uL (4.50-11.00)
[2025-02-09 22:39] LABS: Alanine Aminotransferase* 74 U/L (4-35); Alkaline Phosphatase* 700 U/L (40-150); Anion Gap 6 mEq/L (7-15); Aspartate Amino Transferase* 39 U/L (12-35); Bilirubin Direct* 0.3 mg/dL (0.0-0.5); Bilirubin Total* 0.5 mg/dL (0.1-1.5); Carbon Dioxide* 27 mmol/L (20-32); Total Protein* 6.5 g/dL (6.0-8.3)
[2025-02-09 22:40] LABS: Calcium* 8.5 mg/dL (8.4-10.6); Glucose* 111 mg/dL (60-115)
[2025-02-09 22:43] LABS: D Dimer Quantitative* 1.07 ug/ml (0.00-0.50)
[2025-02-09 22:44] LABS: Immature Granulocytes Abs Auto 0.20 K/uL (0.00-0.30); Lymphocytes Absolute Auto 1.80 K/uL (0.90-2.90); Slide Review Reflex No
[2025-02-09 22:54] LABS: Blood Urea Nitrogen* 15 mg/dL (7-30); Creatinine* 0.8 mg/dL (0.5-1.5); Est. Creatinine Clearance* 62.27; Estimated Glomerular Filt Rate 83 ml/min
[2025-02-09 22:58] LABS: PCR FLU A Negative PCR FLU A (Negative); PCR FLU B Negative PCR FLU B (Negative); PCR RSV Negative PCR RSV (Negative); SARS PCR* Negative SARS-CoV-2 (Negative)
--- NOTE | 2025-02-09 23:25 | CRLHL7_ITS ---
For Patients: As a result of the Century Cures Act, medical imaging exams and procedure reports are released immediately into your electronic medical record. You may view this report before your referring provider. If you have questions, please contact your health care provider. INDICATION: Pulmonary embolism (PE) suspected, positive D-dimer. History of pulmonary embolism. TECHNIQUE: CT chest PE was acquired with 95 cc Isovue 370 IV contrast. Multiplanar reformats performed including 3D MIP reconstructions. COMPARISON: Chest x-ray 02/09/2025. FINDINGS: Heart and vasculature: No pulmonary embolism identified. Main pulmonary artery normal in caliber. No thoracic aortic aneurysm. Mild cardiomegaly. No pericardial effusion. No CT evidence of acute right heart strain. Lungs and pleura: Trace bilateral pleural effusions. Prominent diffuse bilateral micronodularity and nodular/consolidative opacities. Mild interlobular septal thickening. No pneumothorax. Patent central airways. Diffuse bronchial wall thickening with bilateral distal endobronchial mucous plugging. Lymph nodes/mediastinum: Prominent mediastinal and bilateral hilar lymph nodes. Chest wall: No suspicious chest wall mass or fluid collection. Upper abdomen: No acute abnormality. Bones: No acute abnormality. IMPRESSION: 1. No pulmonary embolism. 2. Diffuse bilateral pulmonary micronodularity and nodular/consolidative opacities, indicative of multifocal infectious/inflammatory process with additional mild diffuse bronchial wall thickening and distal endobronchial mucous plugging. Recommend follow-up CT chest following therapy to assess for resolution and exclude underlying neoplastic process. 3. Cardiomegaly with trace bilateral pleural effusions and mild interlobular septal thickening which may reflect mild superimposed pulmonary edema. 4. Prominent mediastinal and bilateral hilar lymph nodes, likely reactive. Attention on follow-up imaging recommended. Please note that all CT scans at this facility use dose modulation, iterative reconstruction, and/or weight-based dosing when appropriate to reduce radiation dose to as low as reasonably achievable. Dictated by Olivier Alcaraz MD @ 02/10/2025 12:19:53 AM (Electronically Signed)
[2025-02-09] MEDS: cefTRIAXone 2 GM in 0.9 % SODIUM CHLORIDE Mini-bag 100 ML IVPB (23:30)
[2025-02-10 01:15] VITALS: BP 115/73; PULSE 98; RESP 19; TEMP 36.8; O2SAT 90
== END 2025-02-10 01:17 | disposition home or self-care (01) ==
PROVIDERS: Emergency Provider Family Medicine; PCP Internal Medicine
DX: J18.9 Pneumonia, unspecified organism (principal); R09.02 Hypoxemia
CPT/HCPCS: 36415; 71046; 71275; 80048; 80076; 85025; 85379; 86140; 87631; 96361; 96365; 96375; 99284; 99285; J0696; J2405; J7030; Q9967

== ENCOUNTER 2025-02-10 19:43 | Inpatient (IN) | payer OTHER, SELFPAY ==
--- OUTSIDE RECORDS SUMMARY | 2025-02-10 19:45 | XMS_ITS | Clinical Summary ---
Author Organization [facility] Address [address] [address] Care Team Providers Care Car Wash Manager Name Role Phone Marcie Munguia MD Primary Care Provider [phone] Source Comments You are receiving this document [...] for each transition of care or referral. [employer] TechnologiesUnm Cancer CenterModa Operandi Allergies Active AllergyReactionsCriticalityNoted DateCommentsMolds & Smuts01/29/2011Other 06/09/2013 [...] Active Active Problems ProblemNoted DateDiagnosed DateAcute pulmonary ppjylcli91/12/2014Fracture of 5th tehexrxmek19/12/9829Ovsqjmwe24/22/2012 Overview (10/10/2016): Headache(784.0) Incontinence of urine04/12/2011Disease of lung07/24/2010 Overview (10/10/2016): LW Modifier: CT due 04/2010 ; Pulmonary Nodule Solitary Disorder of liver07/24/2010 Overview (10/10/2016): LW Modifier: MRI 03/2010 ; Mass Hepatic Uoqmcph2407/24/2010Major depressive disorder, recurrent episode, moderate 01/02/2005 Overview (10/10/2016): Depression Major Recurrent Moderate Allergic bcgriwtl36/19/2005 Overview (10/10/2016): LW Onset: 29Kpa91 ; Allergy Seasonal Hearing loss07/25/2002 Overview (10/10/2016): Hearing Loss NOS Obesity Resolved Problems ProblemNoted DateDiagnosed DateResolved CrbhYnzsfsmzm10 Overview (10/10/2016): Varicella Zoster Normal tavnwkrl91 Overview (10/10/2016): LW Modifier: x2 ; Normal [...] InformationValueDate RecordedSex Assigned at BirthNot on fileLegal AnbNvkiac79/10/2012 4:33 AM CDTGender IdentityNot on fileSexual OrientationNot on fileOccupationIndustryJob Start DateJob End DateFinance industryNot on fileNot on fileNot on file Last Filed Vital Signs Vital SignReadingTime TakenCommentsBlood Ewuirbij163/8301/31/2016 12:14 PM VAMP SEAMER Tisfl641101/31/2016 12:14 PM VHOHqyvppvuqmw11.1 ??C (97 ??F)01/31/2016 12:14 PM CSTRespiratory Twdl905104/02/2015 12:14 PM CSTOxygen Aforddmfaa43%07/02/2013 10:42 AM CDTInhaled Oxygen Concentration--Qkrjcm015.4 kg (250 lb)08/17/2015 8:41 AM KTGKvtifa761.8 cm (5' 10)08/17/2015 8:41 AM CDTBody Mass Index35.8708/17/2015 8:41 AM CDT Plan of Treatment Health MaintenanceDue DateLast DoneCommentsHep C Screening (Preventive Services) 2Adult Preventive Visit02/23/19798648Asvgdekfwgr37, 05/16/2006HepB Vaccine (3), 01/02/2005, 05/24/1998 Pneumococcal Vaccine 50+ Yrs (1 of 1 - PCV)2011Cervical Cancer Screening Due, 03/24/2009, 12/24/2007, Additional history exists Zoster/Shingles Vaccine (2 of 3)Mammogram04/22/2014 04/22/2013, 05/03/2011, 03/24/2009, Additional history existsCholesterol , 03/24/2009, 09/29/2001DTaP/Tdap/Td Vaccine (2 - Tdap) , 08/25/1996COVID-19 Vaccine (1 - 2024- season)2024 Influenza Vaccine (#1)RSV Vaccine (1 - 1-dose 75+ series) 02/24/2036HIV Screening (Preventive Services)Gmxcdbsti33/11/2004HepA VaccineAged OutNo longer eligible based on patient's [...] Procedure NamePriorityDate/TimeAssociated DiagnosisCommentsMM MAMMOGRAM SCREENING BILAT W ZJMEgribfo62/05/2014 8:18 AM VAMP SEAMER Screening for breast cancer ANATOMICAL PATH LIQUID WAVZPPypskby01/23/2012 3:05 PM VAMP SEAMER LIPID PANEL & DIRECT LDL (IF NEEDED)Eovccqu9307/18/2010 5:39 AM CDT ENDOSCOPY, COLON, SCREENING/GXYWELPRKTLtqbvfr74/08/2010 5:48 PM CSTHIV ANTIBODY Imbkvbc6611/29/2003 4:27 PM CDT from Last 3 Months or Most Recently Relevant to Health Maintenance Results * MM Mammogram Screening Bilat W CAD (04/22/2013 8:18 AM VAMP SEAMER)Anatomical Region LateralityModalityBreastBilateralMammographySpecimen (Source)Anatomical Location / LateralityCollection Method / VolumeCollection TimeReceived Time Impressions 04/22/2013 9:04 AM VAMP SEAMER : BIRADS 1 Negative (overall) Follow Up Mammogram in 1 year - Both The results and recommendations of this examination will be communicated to the patient by the [facility] and we will attempt to schedule any recommended imaging follow up with the patient. BJ Narrative 04/22/2013 9:04 AM VAMP SEAMER Compared to: 05/03/2011 MM MAMMOGRAM DIGITAL SCRN [...] be communicated to the patient by the [facility] and we will attempt to schedule any recommended imaging follow up with the patient. BJ Authorizing ProviderResult TypeResult StatusLeslie A Trcka MDRAD MAMFinal Result * Pap Smear (04/12/2011 3:05 PM VAMP SEAMER)Specimen (Source)Anatomical Location / LateralityCollection Method / VolumeCollection TimeReceived Time04/12/2011 3:05 PM VAMP SEAMER Narrative HP CONVERSION - 04/18/2011 9:23 AM VAMP SEAMER Final GYNECOLOGICAL CYTOLOGY REPORT Pathology #: [id number] ?Date Obtained: 04/12/2011 ? Date Received: 04/13/2011 [...] AM CDT) ComponentValueRef RangeTest MethodAnalysis TimePerformed AtPathologist YecpbavvaWoodgsyxsxq8838 - 200 mg/dLHP PJNEDSSEYEPmxyvhdrdjwsu806 - 149 mg/dL HP CONVERSIONHDL Negxtqbyfxq72(L)>39 mg/dLHP CONVERSIONCholesterol/HDL Ratio Screen5.0No normal rangeHP CONVERSIONLDL Ujmduviite9353 - 130 mg/dLHP CONVERSIONSpecimen (Source)Anatomical Location / LateralityCollection Method / VolumeCollection TimeReceived Time07/18/2010 5:39 AM CDT Narrative Authorizing ProviderResult TypeResult StatusDastacy Carrillo MDLAB_1Final Result Performing OrganizationAddressCity/State/ZIP CodePhone Number HP CONVERSION * Endoscopy, colon, diagnostic (03/28/2009 5:48 PM VAMP SEAMER)Anatomical Region LateralityModalityOtherSpecimen (Source)Anatomical Location / Laterality Collection Method / VolumeCollection TimeReceived Time Narrative Authorizing ProviderResult TypeResult StatusUser ConversionET GI PROCEDURE ORDERABLESFinal Result * HIV Antibody (11/29/2003 4:27 PM CDT)ComponentValueRef RangeTest Method Analysis TimePerformed AtPathologist SignatureHIV 1/HIV 2Non ReacNon ReacHP CONVERSIONSpecimen (Source)Anatomical Location / LateralityCollection Method / VolumeCollection TimeReceived Time11/29/2003 4:27 PM CDT Narrative Authorizing ProviderResult TypeResult StatusTricia L Zubert TUFTER, CNPLAB_1Final ResultPerforming OrganizationAddressCity/State/ZIP CodePhone Number HP CONVERSION from Last 3 Months or Most Recently Relevant to Health Maintenance Insurance * Guarantor: Evita Martin TypeRelation to PatientDate of BirthPhone Billing AddressPersonal/ZhldubXjzq91/06/1961 [phone] (Work) [address] [place] [address] * Guarantor: Evita Martin TypeRelation to PatientDate of BirthPhone Billing AddressPersonal/GqmfptGqoi96/06/1961 [phone] (Work) [address] [place] [address] * Guarantor: [id number] TypeRelation to PatientDate of BirthPhone Billing AddressMVA/RIJYkam1960 [phone] (Work) [address] [place] [address] * Guarantor: Evita Martin TypeRelation to PatientDate of BirthPhone Billing AddressMVA/VHEWdui95 1960 [phone] (Work) [address] [place] [address] * Guarantor: Evita Martin TypeRelation to PatientDate of BirthPhone Billing AddressWorkers MuduVuzd71/06/1961 [phone] (Work) [address] [place] [address] Advance Directives * Full Code (Latest Code Status on File) Date ActivatedDate InactivatedComments08/17/2015 10:35 AM08/17/2015 2:16 PM * Full Code Date ActivatedDate InactivatedComments06/29/2013 9:15 PM07/02/2013 6:08 PM Care Teams Team MemberRelationshipSpecialtyStart DateEnd Date Marcie Munguia MD [address] [address] [facility]05/21/10
--- OUTSIDE RECORDS SUMMARY | 2025-02-10 19:45 | XMS_ITS | Clinical Summary ---
Author Organization [facility] Address [address] [address] Phone Care Team Providers Care Behavioral Health Aide Name Role Phone Víctor Bergman APRN, REPAIRER RECREATIONAL VEHICLE Primary Care Provi xochilt Evita Mckeon MD Unavailable [phone] Allergies Active AllergyReactionsCriticalityNoted QnvhPtqyhpbxEccxzpwvtwpdz01/20/2016 Mold and feathers per patient report, based [...] of right foot08/01/2015Seborrheic eczema of scalp06/08/2015 Hypovitaminosis D006/08/20156964Mqthflg92/29/1607Qrcsdhvswtyjej46/29/2014 Resolved Problems ProblemNoted DateDiagnosed DateResolved DateHammer toeBurn involving less than 10% of body dnnimwa79 Immunizations ImmunizationAdministration DatesNext DueHepatitis B, Adult03/24/2009,01/02/2005, 05/24/1998Influenza Quad Preservative Free11/17/2019Tdap (7 years and older) 03/20/2018,12/24/2007,08/25/1996Zoster Zostavax (Shingles)08/26/2012 Surgical History SurgeryDateSite/LateralityCommentsFOOT GSFPYCK4706/02/2014Lecharly White Guymon, had screws TONSILLECTOMY as a child SINUS SURGERY Kathleen Gutierrez, timefrtodd unknown FOOT FZSKBJI0908/03/2015Right Kathleen Fields COLONOSCOPY10/22/2018N/A Procedure: COLONOSCOPY DIAGNOSTIC; Surgeon: Merissa Martinez MD; Location: [facility] Medical History Medical HistoryDateCommentsDVT (deep venous thrombosis) (HCC)2014Following foot surgeryPE (pulmonary embolism)2014Following foot surgery Family History Medical HistoryRelationCommentsColon CancerFatherParkinson's DiseaseFather LymphomaMotherOtherMotherCVANo Known ProblemsSon 1No Known ProblemsSon 2Breast CancerNegative Family HxRelationStatusCommentsBrotherOtherHealth history/status is unknownFatherDeceased (Age 82)Passed due to Parkinson'sMotherDeceasedSon 1 AliveSon 2Alive Social History Tobacco UseTypesPacks/DayYears UsedDateSmoking Tobacco: NeverSmokeless Tobacco: NeverAlcohol UseStandard Drinks/WeekCommentsYes2 (1 standard drink = 0.6 oz pure alcohol)PHQ-2AnswerDate RecordedPHQ-2 Tdohn080CommentsNoSex and Gender InformationValueDate RecordedSex Assigned at BirthNot on fileLegal Sex Esykad5702/15/2014 3:18 PM CSTGender IdentityNot on fileSexual OrientationNot on file Obstetrics History GravidaParaTermPretermABIABSABEctopicMolarMultipleLivingLive Vtcvet56VpcgVwzgpjo GATotal LaborLabor/2nd/8luTelrpuMgeRgsbMajyLKAYepM7X9UhtoYnizEifkClbw Last Filed Vital Signs Vital SignReadingTime TakenCommentsBlood Qubwozri583/8311/17/2019 2:23 PM CDT Jjvho6877/29/2020 2:23 PM QWPXeqigvqssde08.9 ??C (96.6 ??F)11/17/2019 2:23 PM CDTRespiratory Hxsx333410/22/2018 9:26 AM CDTOxygen Ifcmkjdmxd51%10/22/2018 9:26 AM CDTInhaled Oxygen Concentration--Nratre707.2 kg (278 lb 3.5 oz)11/17/2019 2:23 PM QPRJtblfu177.5 cm (5' 9.5)11/17/2019 2:23 PM CDTBody Mass Index40.5 11/17/2019 2:23 PM CDT Plan of Treatment Health MaintenanceDue DateLast DoneCommentsCT Xiayddlsuayi34/06/1962Cologuard 1961FIT/FOBT5412Pibwlsrxjuacq78/06/1962Pneumococcal Vaccine: 50+ yrs (Standing Order) (1 of 1 - PCV)2011RSV Vaccination (60+ yrs) (Abrysvo/Arexvy) (1 - Risk 50-74 years 1-dose series)2011Shingrix (Zoster recombinant) vaccine (Standing Order) (1 of 2)10/21/2012MAMMO,NQJQJS0610/23/2019 10/23/2018, 08/31/2016, 04/22/2013, Additional history existsCervical CA Screening (Pap), 09/17/2018, 06/15/2014COLONOSCOPY Q 5 YRS , 10/22/2018COVID-19 Vaccine ( - 2024- season)2024 Influenza Vaccine Seasonal (Standing Order) (#1)TETANUS (Standing Order), 12/24/2007, 08/25/1996Colonoscopy , 10/22/2018Colorectal Cancer Screening (consider Cologuard where access is limited)10/22/2028Hepatitis B Vaccine (Standing Order)Completed 03/24/2009, 01/02/2005, 05/24/1998PERTUSSIS (Standing Order)Hpdungjuj86/31/2019, 12/24/2007, 08/25/1996HPV Vaccine (Standing Order) (No Doses Required)Completed Procedures Procedure NamePriorityDate/TimeAssociated DiagnosisCommentsPAP, LIQUID BASED Dfsoznk7011/17/2019 3:11 PM CDT Screening for cervical cancer MAMM YASMEEN SCREEN DIGITAL DNAJKLopykjr90/05/2019 11:26 AM CDT Screening for breast cancer COLONOSCOPY ABFYHELEB68/04/2019 8:20 AM CDT from Last 3 Months or Most Recently Relevant to Health Maintenance Results * PAP, LIQUID BASED (11/17/2019 3:11 PM CDT)ComponentValueRef RangeTest Method Analysis TimePerformed AtPathologist SignatureCase ReportGynecologic Cytology Report ? Case: [id number] ? Authorizing Provider: ??Víctor Bergman APRN, Collected: ? 11/17/2019 1511 ? REPAIRER RECREATIONAL VEHICLE ? Ordering Location: ? [facility] ? Received: ?11/17/2019 1511 ? Family Practice ? First Screen: ?Donnie Jerry ? Pathologist: ? Nila Noel MD ? Specimen: ?LIQUID-BASED PAP, Cervix ? 11/18/2019 12:[address] [facility]Gynec[facility] Cytology Interpretation, SurePath CollectionNegative for Intraepithelial Lesion or Malignancy.11/18/2019 12:[address] [facility] at 1225 CDTSpecimen AdequacySatisfactory for evaluation, endocervical/transformation zone component is present.11/18/2019 12:[address] [facility] LAB[facility]ATORYPap DisclaimerNote: The Pap test is a screening procedure and is not, by itself, diagnostic. False negatives and positives do occur. Correlation with clinical findings, history and a program of regular examinations including Pap tests is warranted to help detect cancers and precursor lesions of the female genital tract. 11/18/2019 12:25 PM CDTEH [facility] LABORATORYSpecimen (Source)Anatomical Location / LateralityCollection Method / VolumeCollection TimeReceived TimeBrush/BroomVAGINAL CERVIX / UnknownNon-blood collection / Mqqkjmf7211/17/2019 3:11 PM CDT11/17/2019 3:11 PM CDT Narrative Authorizing ProviderResult TypeResult StatusVícotr Bergman APRN, CNPEC PATHOLOGY ORDERABLESFinal ResultPerforming OrganizationAddressCity/State/ZIP CodePhone Number [facility] [address] * MAMM YASMEEN SCREEN DIGITAL BILAT [...] RECOMMENDATIONS: Annual screening mammography is recommended per [employer] guidelines. BI-RADS 1: Negative. [...] CDT)ComponentValueRef RangeTest MethodAnalysis TimePerformed AtPathologist SignatureColonoscopy ProcedureSt. Clif[facility] Patient Name: Evita Martin ? Date of : 1960 ? Patient Status: Outpatient Age: 58 ? Gender: Female Race: White ? Note Status: Finalized Procedure Date No Time: 10/22/2018 ? Procedure: ? Colonoscopy Endoscopist: ? MERISSA MARTINEZ MD Referring : ?VÍCTOR BERGMAN APRN, REPAIRER RECREATIONAL VEHICLE Indications: ? High risk colon cancer surveillance: [...] report has been signed electronically. ? [address] [address] Procedure ReportESSENTIA LABORATORYSpecimen (Source)Anatomical Location / LateralityCollection Method / VolumeCollection TimeReceived Time10/22/2018 8:20 AM CDT Narrative Authorizing ProviderResult TypeResult StatusMerissa Martinez MDEC PROCEDURESFinal ResultPerforming OrganizationAddressCity/State/ZIP CodePhone Number [facility] from Last 3 Months or Most Recently Relevant to Health Maintenance Insurance Care Teams Team MemberRelationshipSpecialtyStart DateEnd Date Víctor Bergman APRN, GI [address] [place] [address] PCP - GeneralFamily Medicine09/15/14 Evita Mckeon MD [address] [place] [address] [phone] PCP - PC TeamFamily Medicine08/29/16
--- NOTE | 2025-02-10 19:53 | ED_ITS ---
HPI - General Adult General Chief complaint: Syncope/Fainted Stated complaint: passed out Time Seen by Provider: 02/10/25 19:53 History of Present Illness HPI narrative: CC: Syncope pt. was walking to the bathroom when she passed out. son was able to catch her before she hit the floor. no injury. does have pneumonia. 64-year-old woman returning to the emergency department after what sounds like a near syncopal event in the setting of pneumonia. Illness seems to have began about 10 days ago. Initially treated with albuterol inhaler was then seen a couple of days ago and initiated on amoxicillin with diagnosis of community- acquired pneumonia. Seen in here by myself yesterday and antibiotic coverage was expanded with slightly worse chest x-ray to also include azithromycin after dosing Rocephin in the emergency department. Received IV hydration and antiemetic. With history of prior PE, CT imaging was done showing multifocal infiltrates with likely reactive hilar lymph nodes and without pulmonary embolus. Accompanied by her son. Lives in the basement of shared home. Fever was back again today. Measured up to 102. something. During this time she had gotten up and was going to go to the bathroom. Has been feeling more lightheaded and dizzy and felt her vision got little fuzzy on the way to the bathroom. Son was attending and managed to pin Heragainst the wall to help her stay upright Somewhat. Does not sound that she completely passed out. No sense of dysrhythmia. Has not been vomiting. No diarrhea. Just still feels really weak. No pleuritic pain noted. Related Data Home Medications ?Medication ?Instructions ?Recorded ?Confirmed tirzepatide 15 mg/0.5 mL 17 mg subcut .twice a week 1 04/13/23 02/09/25 subcutaneous pen injector Previous Rx's ?Medication ?Instructions ?Recorded sertraline 100 mg tablet 100 mg PO QDAY #90 tabs 03/21 11/12 albuterol sulfate 90 mcg/actuation 2 puff inhalation Q ID #6.7 grams 02/03/25 aerosol inhaler amoxicillin 500 mg capsule 1,000 mg (2 x 500 mg) PO TI D 5 02/08/25 days #30 caps Allergies Allergy/AdvReac Type Severity Reaction Status Date / Time No Known Drug Allergies Allergy Verified 02/10/25 20:34 Review of Systems Status of ROS: Reports: 6 or more systems reviewed and unremarkable except as noted in History and below [facility] Medical History Cough ?R05.9 - Cough, unspecified (ICD-10) Sinusitis ?J32.9 - Chronic sinusitis, unspecified (ICD-10) Knee injury ?S89.90XA - Unspecified injury of unspecified lower leg, initial encounter (ICD-10) Obesity ?E66.9 - Obesity, unspecified (ICD-10) Anxiety ?F41.9 - Anxiety disorder, unspecified (ICD-10) Hyperlipidemia ?E78.5 - Hyperlipidemia, unspecified (ICD-10) Surgical History Status post foot surgery ?Z98.890 - Other specified postprocedural states (ICD-10) Hx of sinus surgery ?Z98.890 - Other specified postprocedural states (ICD-10) History of tonsillectomy ?Z90.89 - Acquired absence of other organs (ICD-10) Social History What is your current living situation?: I presently have a place to live Problems where you live: no known problems In the past 12 months, utilities in danger of being shut off: no In past 12 months, lack of transportation kept you from medical appts, meetings, work, or getting things needed for daily living: no In the past 12 mos, have been you worried that your food would run out before you had money to buy more?: never true In the past 12 mos, the food you bought just didn't last and you didn't have money to buy more?: never true Smoking Status: Never smoker Do you use any of these nicotine containing products: None Second hand tobacco smoke exposure: No How often do you have a drink containing alcohol: never How often do you have six or more drinks on one occasion: Never AUDIT-C Alcohol total score: 0 Non-prescribed substance use: denies use Caffeine: Yes How often does anyone, including family, friends and others, physically hurt you : never How often does anyone, including family, friends and others, insult or talk down to you: never How often does anyone, including family, friends and others, threaten you with harm: never How often does anyone, including family, friends and others, scream or curse at you: never Are you using contraception or practicing any form of control: No Exam Narrative: Exam Narrative: Appears quite tired. Slightly diaphoretic. Cranial nerves 2-12 intact. Lungs actually sound clear. Heart in elevated rate and regular rhythm. Subtly labored in her breathing but not particularly tachypneic. Abdomen is soft nontender. Well-perfused peripherally. No edema. Const: Vital Signs, click to edit/add: Vital Signs - 24 hr 02/10/25 20:32 02/10/25 20:56 02/10/25 21:57 Temperature 98.6 F Pulse Rate [Right Pulse Oximeter] 90 Pulse Rate [orthos tatic lying Pulse Oximeter] 88 Pulse Rate [orthos tatic sitting Puls e Oximeter] 95 Pulse Rate [orthos tatic standing Pul se Oximeter] 102 H Respiratory Rate 20 Blood Pressure [Ri ght Upper Arm] 124/74 Blood Pressure [or thostatic lying Ri ght Arm] 109/60 Blood Pressure [or thostatic sitting Right Arm] 107/64 Blood Pressure [or thostatic standing Right Arm] 87/45 L Pulse Oximetry 92 92 Oxygen Delivery Me thod Room Air Oxygen Flow Rate 02/10/25 22:21 02/10/25 23:53 02/11/25 00:17 Temperature 98.6 F 99.5 F Pulse Rate [Right Pulse Oximeter] 97 Pulse Rate [orthos tatic lying Pulse Oximeter] 88 Pulse Rate [orthos tatic sitting Puls e Oximeter] 95 Pulse Rate [orthos tatic standing Pul se Oximeter] 102 H Respiratory Rate 20 Blood Pressure [Ri ght Upper Arm] 108/74 Blood Pressure [or thostatic lying Ri ght Arm] 109/60 Blood Pressure [or thostatic sitting Right Arm] 107/64 Blood Pressure [or thostatic standing Right Arm] 87/45 L Pulse Oximetry 92 Oxygen Delivery Me thod Nasal Cannula Oxygen Flow Rate 2 Documenting provider has reviewed patient's vital signs: yes Course Vital Signs Vital signs: Initial Vital Signs Temperature 98.6 F 02/10/25 20:32 Temperature Source Temporal Artery Scan 02/10/25 20:32 Pulse Rate 90 02/10/25 20:32 Respiratory Rate 20 02/10/25 20:32 Blood Pressure 124/74 02/10/25 20:32 Blood Pressure Mean 90 02/10/25 20:32 Blood Pressure Position Sitting 02/10/25 20:32 Pulse Oximetry 92 02/10/25 20:32 Oxygen Delivery Method Room Air 02/10/25 20:32 Vital Signs Temperature 98.6 F 02/10/25 20:32 Pulse Rate 90 02/10/25 20:32 Respiratory Rate 20 02/10/25 20:32 Blood Pressure 124/74 02/10/25 20:32 Pulse Oximetry 92 02/10/25 20:32 Oxygen Delivery Method Room Air 02/10/25 20:32 Temperature 99.5 F 02/11/25 00:17 Pulse Rate 97 02/11/25 00:17 Respiratory Rate 20 02/11/25 00:17 Blood Pressure 108/74 02/11/25 00:17 Pulse Oximetry 92 02/11/25 00:17 Oxygen Delivery Method Nasal Cannula 02/11/25 00:17 Oxygen Flow Rate 2 02/11/25 00:17 Medications Administered Medications: Generic Name Dose Route Start Last Admin Trade Name Freq PRN Reason Stop Dose Admin Ceftriaxone Sodium 1 gm/ 100 mls @ 200 mls/hr 02/11/25 00:23 02/11/25 00:34 Sodium Chloride IVPB 02/11/25 00:52 200 mls/hr ONCE ONE Administration Discontinued Medications Generic Name Dose Route Start Last Admin Trade Name Freq PRN Reason Stop Dose Admin Sodium Chloride 1,000 mls @ 1,000 mls/hr 02/10/25 20:56 02/10/25 22:14 0.9 % Sodium Chloride 1000 Ml IV 02/10/25 21:55 Infused .Q1H ONE Infusion Ketorolac Tromethamine 15 mg 02/10/25 23:06 02/10/25 23:53 Ketorolac 15 Mg/Ml Inj IVP 02/10/25 23:07 15 mg ONCE ONE Administration Ondansetron HCl 4 mg 02/10/25 23:06 02/10/25 23:53 Ondansetron 2 Mg/Ml Inj IVP 02/10/25 23:07 4 mg ONCE ONE Administration Medical Decision Making MDM Narrative Medical decision making narrative: Known pneumonia. Not sure that we have failed expanded course of antibiotics but is perhaps a little more symptomatic. Recheck labs and check blood cultures as this was not done prior. Monitor on oximetry. Initiated on IV fluids has not sure that she has been keeping up. Continues to be quite thirsty. EKG independently reviewed by me does with as sinus tachycardia at 107. Labs are similar to yesterday with moderately elevated CRP and mildly elevated white count. Normal lactate. Did check orthostatics which were positive and quite symptomatic. Hypotensive. Otherwise does not exhibit evidence of sepsis. Over period of monitoring during sleep she does deoxygenate to 84%. Off oxygen generally around 88-92% on room air. Has been placed on low-flow oxygen via nasal cannula. I think would meet criteria for admission and does express fears of going home as a younger cousin was discharged with pneumonia and went home and . Expresses again that she really does not want to have to come back. Have discussed this case with our hospitalist who is swamped with other a dmissions at the moment. Tentatively accepted for admission. Anticipate calling overnight coverage for final orders. Medical Records Medical records reviewed: Yes I reviewed the patient's medical records Lab Data Lab results reviewed: Yes I reviewed the patient's lab results Labs: Lab Results 02/10/25 02/10/25 Range/Units 20:50 22:46 WBC 11.28 H (4.50-11.00) K/uL RBC 4.71 (4.00-5.20) m/uL Hgb 12.3 (12.0-16.0) gm/dL Hct 39.5 (33.0-51.0) % MCV 84 (80-100) fL MCH 26 (26-34) pg MCHC 31 L (32-36) gm/dL RDW Coeff of Rajat 11.8 (11.5-15.5) % Plt Count 477 H (140-440) K/uL Neut % (Auto) 74.6 H (42.0-72.0) % Lymph % (Auto) 13.7 L (20-44) % Borden % (Auto) 8.5 (0.0-11.0) % Eos % (Auto) 2.0 (0.0-7.0) % Baso % (Auto) 0.4 (0.0-3.0) % Neut # (Auto) 8.40 H (1.7-7.0) K/uL Lymph # (Auto) 1.50 (0.90-2.90) K/uL Borden # (Auto) 1.00 H (0.00-0.90) K/UL Eos # (Auto) 0.20 (0.00-0.50) K/uL Baso # (Auto) 0.00 (0.00-0.30) K/uL Abs Immat Gran (auto) 0.10 (0.00-0.30) K/uL Imm/Tot Granulo (auto) 0.8 % VBG pH 7.436 H (7.32-7.43) VBG pCO2 37 L (40-50) mmHG VBG pO2 53.9 H (25-47) mmHG VBG HCO3 25 (21-28) mmol/L Sodium 133 L (135-149) mmol/L Potassium 3.8 (3.6-5.1) mmol/L Chloride 101 (96-114) mmol/L Carbon Dioxide 24 (20-32) mmol/L Anion Gap 8 (7-15) mEq/L BUN 16 (7-30) mg/dL Creatinine 0.7 (0.5-1.5) mg/dL Estimated Creat Clear 62.27 Estimated GFR 97 ml/min Glucose 119 H (60-115) mg/dL Lactate 1.1 (0.5-1.9) mmol/L Calcium 8.9 (8.4-10.6) mg/dL Troponin I < 0.01 (0.01-0.04) ng/mL C-Reactive Protein 16.9 H (0.5-1.0) mg/dL NT-Pro-B Natriuret Pep 189 (See Note) pg/mL Lab Acknowledgement Test Added Critical Care Time Critical Care Time Critical Care Time: Yes Attestation: The patient required my highest level preparedness to intervene emergently and I personally spent this critical care time directly and personally managing the patient. This critical care time included: Obtaining a history; Examining the patient; Pulse oximetry; Ordering and reviewing of studies; Arranging urgent treatment with development of a management plan; Evaluation of patients response to treatment; Frequent reassessment discussions with other providers. This critical care time was performed to assess and manage the high probability of imminent life-threatening deterioration that could result in multiorgan failure. It was exclusive of separate billable procedures and treating other patients and teaching time. Total Critical Care Time in Minutes: 40 Discharge Plan Discharge Clinical Impression: Pneumonia, Respiratory failure, Orthostatic hypotension Prescriptions: No Action amoxicillin 500 mg capsule 1,000 mg PO TID 5 Days Qty: 30 0RF tirzepatide 15 mg/0.5 mL pen injector 17 mg subcut .twice a week Rx Instructions: Saturday and Saturday patient takes medication albuterol sulfate 90 mcg/actuation HFA aerosol inhaler 2 puff inhalation QID Qty: 6.7 3RF sertraline 100 mg tablet 100 mg PO QDAY Qty: 90 3RF Follow Up/Referrals: Diomedes Kevin MD [Primary Care Provider, Internal Medicine] Procedures ABG Interpretation ABG Results: 02/10/25 20:50 VBG pH 7.436 H VBG pCO2 37 L VBG pO2 53.9 H VBG HCO3 25
[2025-02-10 20:32] VITALS: BP 124/74; PULSE 90; RESP 20; TEMP 37; O2SAT 92; BMI 30.8
[2025-02-10 20:56] VITALS: O2SAT 92
[2025-02-10 21:07] LABS: Hematocrit* 39.5 % (33.0-51.0); Hemoglobin* 12.3 gm/dL (12.0-16.0); Immature Granulocytes Pct Auto 0.8 %; Mean Corpuscular HGB Conc 31 gm/dL (32-36); Mean Corpuscular Hemoglobin 26 pg (26-34); Mean Corpuscular Volume 84 fL (80-100); RDW Coefficient of Variation % 11.8 % (11.5-15.5); Red Blood Count* 4.71 m/uL (4.00-5.20); White Blood Count* 11.28 K/uL (4.50-11.00)
[2025-02-10 21:08] LABS: Immature Granulocytes Abs Auto 0.10 K/uL (0.00-0.30); Lymphocytes Absolute Auto 1.50 K/uL (0.90-2.90); Slide Review Reflex No
[2025-02-10 21:10] LABS: HCO3 VBG 25 mmol/L (21-28); Lactate* 1.1 mmol/L (0.5-1.9); PCO2 VBG 37 mmHG (40-50); PO2 VBG 53.9 mmHG (25-47); pH VBG 7.436 (7.32-7.43)
[2025-02-10 21:28] LABS: Chloride* 101 mmol/L (96-114); Sodium* 133 mmol/L (135-149)
[2025-02-10 21:29] LABS: Potassium* 3.8 mmol/L (3.6-5.1)
[2025-02-10 21:32] LABS: Anion Gap 8 mEq/L (7-15); Blood Urea Nitrogen* 16 mg/dL (7-30); Calcium* 8.9 mg/dL (8.4-10.6); Carbon Dioxide* 24 mmol/L (20-32); Creatinine* 0.7 mg/dL (0.5-1.5); Est. Creatinine Clearance* 62.27; Estimated Glomerular Filt Rate 97 ml/min; Glucose* 119 mg/dL (60-115)
[2025-02-10 21:57] VITALS: BP 107/64; BP 109/60; BP 87/45; PULSE 102; PULSE 88; PULSE 95
[2025-02-10 22:21] VITALS: BP 107/64; BP 109/60; BP 87/45; PULSE 102; PULSE 88; PULSE 95
[2025-02-10 23:00] VITALS: RESP 20; O2SAT 92
[2025-02-10 23:45] LABS: NT Pro B Type NatriureticPept* 189 pg/mL (See Note)
[2025-02-10 23:53] VITALS: TEMP 37
[2025-02-10] MEDS: ONDANSETRON 2 MG/ML inj 4 MG IVP (23:53)
[2025-02-11] VITALS (18 sets, daily range): BP systolic 99–132; BP diastolic 61–79; PULSE 70–97; RESP 16–24; TEMP 36.4–37.8; O2SAT 90–95
[2025-02-11] MEDS: cefTRIAXone 1 GM in 0.9 % SODIUM CHLORIDE Mini-bag 100 ML IVPB (00:34)
--- NOTE | 2025-02-11 00:44 | W.PM.THH&P_ITS ---
Telehealth- H&P: HPI History of Present Illness Date Seen: 02/11/25 Chief complaint: passed out Narrative: Evita Martin is seen as an Interactive Telehealth visit. 64-year-old female with past medical history significant for obesity, anxiety, hyperlipidemia, sinusitis with mucous retention cyst status post right maxillary antrostomy with tissue removal and removal of right antral mucous retention cyst on 11/03/2024, now presents to the emergency department after syncopal episode earlier today. Patient was initially evaluated on 02/03/2025 for 3-day history of nonproductive cough as well as body aches and generalized malaise. At that time she was prescribed an albuterol inhaler and sent home. She re- presented to urgent care on 02/08/2025 with worsening cough and shortness of breath as well as low-grade fevers and lightheadedness. She has been taking Tylenol and ibuprofen for fever as well as body aches. Vital signs at that time noted to be 94% pulse ox on room air. Chest x-ray notable for faint diffuse reticulonodular opacities concerning for acute infection or inflammatory process on 02/08/2025 CBC on 02/08/2025 notable for WBC count 13 with 84% neutrophils. Patient was diagnosed with community-acquired pneumonia and given amoxicillin 1 g 3 times daily for 5 days. Patient was seen on 02/09/2025 in the emergency department with worsening shortness of breath as well as fever of 99-1 01. O2 sat at home was noted to be 84 to 86%. Patient was also noted to be feeling lightheaded. CT PE notable for diffuse bilateral pulmonary micronodularity and consolidative opacities indicative of multifocal infectious inflammatory process with diffuse bronchial wall thickening and distal and endobronchial mucous plugging. Prominent mediastinal and bilateral hilar lymph nodes were also noted. Patient was given a dose of Rocephin in the emergency room and azithromycin was added on discharge in addition to her amoxicillin course. Patient subsequently Kathi presented to the emergency department today with syncopal episode. Fever was notably 102. Patient is also noted nausea over the past 2 days. She states along with the fever she is getting splitting headaches. She had 2 grandsons that had RSV 2 weeks prior to admission. She also notes body aches as well as chills. She denies any chest pain or palpitations. She does note decreased p.o. intake. Today her son caught her against the wall prior to falling onto the floor. She did endorse worsening lightheadedness today that has worsened since symptom onset approximately 10 days prior to admission. Patient does not smoke. She denies any dysuria. She also denies any diarrhea or constipation. She does note chills as well as sweats. In the emergency department she was noted to have a WBC count of 11.28, hemoglobin 12.3, platelet count 477. Sodium of 133, potassium of 3.8, BUN of 16, creatinine 0.7. Lactic acid 1.1. LFTs currently pending. Troponin was noted to be negative. CRP 16.9. Of note AST 39 ALT 74 and alk phos 700 on 02/09/2025. Patient was also noted to be orthostatic. Patient was given ceftriaxone 1 g, azithromycin 500 mg IV, 1 L normal saline and subsequently admitted for further management. In the emergency department she also required 2 L nasal cannula to maintain an O2 sat of 92%. Review of Systems Narrative: A complete review of systems was performed. Pertinent positives and negatives are in the HPI. [facility] Medical History Cough ?R05.9 - Cough, unspecified (ICD-10) Sinusitis ?J32.9 - Chronic sinusitis, unspecified (ICD-10) Knee injury ?S89.90XA - Unspecified injury of unspecified lower leg, initial encounter (ICD-10) Obesity ?E66.9 - Obesity, unspecified (ICD-10) Anxiety ?F41.9 - Anxiety disorder, unspecified (ICD-10) Hyperlipidemia ?E78.5 - Hyperlipidemia, unspecified (ICD-10) Surgical History Status post foot surgery ?Z98.890 - Other specified postprocedural states (ICD-10) Hx of sinus surgery ?Z98.890 - Other specified postprocedural states (ICD-10) History of tonsillectomy ?Z90.89 - Acquired absence of other organs (ICD-10) Social History What is your current living situation?: I presently have a place to live Problems where you live: no known problems In the past 12 months, utilities in danger of being shut off: no In past 12 months, lack of transportation kept you from medical appts, meetings, work, or getting things needed for daily living: no In the past 12 mos, have been you worried that your food would run out before you had money to buy more?: never true In the past 12 mos, the food you bought just didn't last and you didn't have money to buy more?: never true Smoking Status: Never smoker Do you use any of these nicotine containing products: None Second hand tobacco smoke exposure: No How often do you have a drink containing alcohol: never How often do you have six or more drinks on one occasion: Never AUDIT-C Alcohol total score: 0 Non-prescribed substance use: denies use Caffeine: Yes How often does anyone, including family, friends and others, physically hurt you : never How often does anyone, including family, friends and others, insult or talk down to you: never How often does anyone, including family, friends and others, threaten you with harm: never How often does anyone, including family, friends and others, scream or curse at you: never Are you using contraception or practicing any form of control: No Meds Home Medications and Allergies Home Medications ?Medication ?Instructions ?Recorded ?Confirmed ?Type tirzepatide 15 mg/0.5 mL 17 mg subcut .twice a week 1 04/13/23 02/09/25 History subcutaneous pen injector sertraline 100 mg tablet 100 mg PO QDAY #90 tabs 03/2102/09/25 Rx albuterol sulfate 90 mcg/actuation 2 puff inhalation Q ID #6.7 grams 02/03/25 02/09/25 Rx aerosol inhaler amoxicillin 500 mg capsule 1,000 mg (2 x 500 mg) PO TI D 5 02/08/25 02/09/25 Rx days #30 caps Allergies Allergy/AdvReac Type Severity Reaction Status Date / Time No Known Drug Allergies Allergy Verified 02/10/25 20:34 Exam Narrative Exam Narrative: Physical Exam GENERAL: ?vital signs reviewed, well developed and nourished, in no distress HEENT: pupils are equal round and reactive to light, extraocular movements are grossly within normal limits and oral mucosa is moist. NECK: Supple without lymphadenopathy or thyromegaly according to nursing staff examination observation HEART: Regular rate and rhythm without any rubs, murmurs, or gallops. LUNGS: Decreased breath sounds at the bases ABDOMEN: Observation from nurse assisted exam, abdomen appears soft, nontender, and nondistended with Positive bowel sounds noted. EXTREMITIES: Strength and sensation is observed to be grossly within normal limits in the upper and lower extremities.? No focal strength deficit is observed. SKIN:? Observed warm and dry with color normal Const Vital Signs, click to edit/add: Vital Signs - 24 hr 02/10/25 20:32 02/10/25 20:56 02/10/25 21:57 Temperature 98.6 F Pulse Rate [Right Pulse Oximeter] 90 Pulse Rate [orthostatic lying Pulse Oximeter] 88 Pulse Rate [orthostatic sitting Pulse Oximeter] 95 Pulse Rate [orthostatic standing Pulse Oximeter] 102 H Respiratory Rate 20 Blood Pressure [Right Upper Arm] 124/74 Blood Pressure [orthostatic lying Right Arm] 109/60 Blood Pressure [orthostatic sitting Right Arm] 107/64 Blood Pressure [orthostatic standing Right Arm] 87/45 L Pulse Oximetry 92 92 Oxygen Delivery Method Room Air Oxygen Flow Rate 02/10/25 22:21 02/10/25 23:53 02/11/25 00:17 Temperature 98.6 F 99.5 F Pulse Rate [Right Pulse Oximeter] 97 Pulse Rate [orthostatic lying Pulse Oximeter] 88 Pulse Rate [orthostatic sitting Pulse Oximeter] 95 Pulse Rate [orthostatic standing Pulse Oximeter] 102 H Respiratory Rate 20 Blood Pressure [Right Upper Arm] 108/74 Blood Pressure [orthostatic lying Right Arm] 109/60 Blood Pressure [orthostatic sitting Right Arm] 107/64 Blood Pressure [orthostatic standing Right Arm] 87/45 L Pulse Oximetry 92 Oxygen Delivery Method Nasal Cannula Oxygen Flow Rate 2 Hospitalist - H&P: Result Labs Labs: Short CBC 02/10/25 Range/Units 20:50 WBC 11.28 H (4.50-11.00) K/uL Hgb 12.3 (12.0-16.0) gm/dL Hct 39.5 (33.0-51.0) % Plt Count 477 H (140-440) K/uL BMP 02/10/25 20:50 Sodium 133 L Potassium 3.8 Chloride 101 Carbon Dioxide 24 BUN 16 Creatinine 0.7 Glucose 119 H Calcium 8.9 Cardiac Enzymes 02/10/25 Range/Units 20:50 Troponin I < 0.01 (0.01-0.04) ng/mL Imaging CT scan - chest: Radiologist's impression: CT PE 02/09/25: 1. No pulmonary embolism. 2. Diffuse bilateral pulmonary micronodularity and nodular/consolidative opacities, indicative of multifocal infectious/inflammatory process with additional mild diffuse bronchial wall thickening and distal endobronchial mucous plugging. Recommend follow-up CT chest following therapy to assess for resolution and exclude underlying neoplastic process. 3. Cardiomegaly with trace bilateral pleural effusions and mild interlobular septal thickening which may reflect mild superimposed pulmonary edema. 4. Prominent mediastinal and bilateral hilar lymph nodes, likely reactive. Attention on follow-up imaging recommended. Assessment and Plan Assessment and plan (1) Orthostatic hypotension: Status: Acute (2) Respiratory failure: Status: Acute (3) Pneumonia: Status: Acute (4) Hypoxia: Status: Acute (5) Hyponatremia: Status: Acute (6) Sepsis: Status: Acute Plan 64-year-old female past medical history significant for osteoarthritis, obesity, anxiety, hyperlipidemia now presents to the emergency department with syncopal episode in the setting of pneumonia that began approximately 10 days prior to admission, now with worsening symptoms of cough as well as shortness of breath and now with syncopal episode. Severe sepsis/septic shock secondary to community-acquired pneumonia, failed outpatient course of antibiotics Acute hypoxic respiratory failure as evidenced by increased work of breathing and supplemental oxygen use Syncopal episode Status post 1 L IV fluids in the emergency department Additional 1 L IV fluid bolus followed by normal saline at 100 cc/h Stop outpatient amoxicillin Initiate ceftriaxone (now day 2, first dose 02/09 in ER) and azithromycin Albuterol neb as needed Follow-up blood cultures x 2 Sputum culture and Gram stain as able Check Legionella urinary antigen and pneumonia Supplemental oxygen as needed Mucinex twice daily Monitor on telemetry Recommend repeat CT imaging as outpatient in 6 to 8 weeks Elevated LFTs in the setting of community-acquired pneumonia and hypotension, may be due to shock liver vs tirzepitide side effect +/-exacerbated by PNA Repeat LFTs Worsening Check CT abdomen pelvis Check ultrasound gallbladder when able Trend LFTs, if worsening may need dedicated imaging Hyponatremia?likely prerenal Continue with IV fluid hydration Repeat renal profile in the a.m. Obesity Hold tirzepatide DVT prophylaxis Lovenox subcu CODE STATUS full code Telehealth: Statement Statement Telehealth Visit: Today's History and Physical is provided via interactive telehealth by Penelope Nino MD.? Patient is located at [facility].? Provider is located at [facility].? Nursing staff assisted with the patient's exam. The visit being done today meets criteria for a telehealth visit and the patient or patient?s parent/guardian is aware the visit is a telehealth visit. Camera Start Time: 01:12 Camera End Time: 01:33
[2025-02-11 00:50] LABS: Albumin* 3.2 g/dL (3.3-5.0)
[2025-02-11 00:52] LABS: Alanine Aminotransferase* 70 U/L (4-35); Aspartate Amino Transferase* 45 U/L (12-35); Total Protein* 5.8 g/dL (6.0-8.3)
[2025-02-11 00:53] LABS: Alkaline Phosphatase* 817 U/L (40-150); Bilirubin Direct* 0.3 mg/dL (0.0-0.5); Bilirubin Total* 0.4 mg/dL (0.1-1.5)
[2025-02-11] MEDS: AZITHROMYCIN 500 MG in 0.9 % SODIUM CHLORIDE 250 ml 250 ML 255 MG IVPB ×2 (01:12→21:10)
--- NOTE | 2025-02-11 01:39 | CRLHL7_ITS ---
For Patients: As a result of the Century Cures Act, medical imaging exams and procedure reports are released immediately into your electronic medical record. You may view this report before your referring provider. If you have questions, please contact your health care provider. Indication: Nausea. Abnormal liver function tests. Technique: Sonography of the abdomen was performed limited to the structures discussed below. Comparison: Portions of a CT from earlier the same day Findings: Gallbladder wall thickness is normal 1 millimeter. No sludge, calculus or pericholecystic fluid. No reported sonographic Sheffield`s sign. Common bile duct is normal at 3 millimeters. The liver is normal in size. No biliary ductal dilation. Echogenicity is overall normal. There are multiple relatively well-circumscribed hyperechoic nonshadowing masses. Imaging features are most consistent with hemangiomas. However, 1 of the more confluent masses in the right lobe measuring 3.1 x 2.4 x 3.6 centimeters has atypical imaging features for hemangioma by ultrasound. Hemangioma still remains the most likely diagnosis. In the absence of prior imaging for comparison, I would recommend an MRI for further evaluation in the nonacute setting. Impression: 1. Gallbladder and common bile duct appear normal. 2. Hepatic echogenicity is overall normal. No intrahepatic biliary ductal dilation. 3. There are multiple masses most of which have imaging features of hemangiomas. However, 1 of the conglomerate mass in the right lobe has atypical features for a hemangioma by sonography. Specifically, the central portion is not homogeneously hyperechoic. Hemangioma remains the most likely diagnosis. Due to the lack of prior studies for comparison and the abnormal liver function tests, recommended MRI at a clinically appropriate time for further evaluation. Dictated by Arsalan Benjamin MD @ 02/11/2025 8:03:31 AM (Electronically Signed)
--- NOTE | 2025-02-11 01:41 | CRLHL7_ITS ---
For Patients: As a result of the 21st Century Cures Act, medical imaging exams and procedure reports are released immediately into your electronic medical record. You may view this report before your referring provider. If you have questions, please contact your health care provider. INDICATION: Concern for stones, elevated LFTs. TECHNIQUE: CT abdomen and pelvis acquired with 108 cc Isovue 370 IV contrast. COMPARISON: None. FINDINGS: Lower chest: Multiple tree-in-bud nodular opacities in the included lung field with minimal bilateral pleural effusion and basilar atelectasis. Liver: Liver is normal in size and attenuation. Few scattered hypodense liver lesions, largest in the right hepatic lobe measures about 18 millimeter. Although these lesions are incompletely assessed, few of them show discontinuous peripheral nodular enhancement, which could be related to hemangioma. Gallbladder and bile ducts: No stones or inflammation. No biliary dilatation. Pancreas: No mass or inflammation. Spleen: Normal in size. No masses. Adrenal glands: No suspicious mass. Kidneys: Bilateral kidneys are normal in size with symmetric enhancement. No nephrolithiasis or hydronephrosis. GI tract: No findings of bowel obstruction. Colonic diverticulosis. Vasculature: Abdominal aorta is normal in caliber. Lymph nodes: No lymphadenopathy. Peritoneum/Abdominal Wall: No free air or significant free fluid. Hernia. Small fat containing umbilical Pelvis: Uterus is normal in size and attenuation. Bones: Degenerative changes of the spine. IMPRESSION: No acute abnormality in abdomen and pelvis. Multiple tree-in-bud nodular opacities in the included lung colbert with minimal bilateral pleural effusion, findings are concerning for possibly endobronchial infection. Few incompletely assessed hypodense liver lesions, most likely related to hemangioma. Further assessment with nonurgent ultrasound would be of help. Please note that all CT scans at this facility use dose modulation, iterative reconstruction, and/or weight-based dosing when appropriate to reduce radiation dose to as low as reasonably achievable. Dictated by Claribel Nino MD @ 02/11/2025 7:44:31 AM (Electronically Signed)
[2025-02-11] MEDS: SERTRALINE 100 MG TABLET PO ×2 (02:18→22:21)
[2025-02-11 05:38] LABS: S pneumo Ag Urine S. pneumo Negative (Negative)
--- NOTE | 2025-02-11 06:07 | PC.NURSE ---
End of shift report: Pt arrived?to?the floor at 0100, accompanied by her son Cayetano. VSS. Afebrile.?AxOx4. Denies nausea. Denies pain.?Pt is on 2?L O2 via NC. Pt has SOB with exertion. Pt has a nonproductive cough. Pt ambulates?SBA in?room. Pt is resting in bed, call light within reach.
[2025-02-11] MEDS: SODIUM CHLORIDE 0.9 % (FLUSH) 10 ML SYRINGE 5 ML IVF ×2 (09:04→21:11)
[2025-02-11] MEDS: guaiFENesin 600 MG TAB.ER.12H PO ×2 (09:04→21:08)
--- NOTE | 2025-02-11 14:51 | PM.EN ---
Chart Event Note Date Seen: 02/11/25 Chart Event Note: I reviewed her medical record, I assessed her. Condition is stabilizing. Continue with plans as specified. Increase activity level. Consider assessing for home O2 needs.
[2025-02-11] MEDS: ACETAMINOPHEN 325 MG TABLET 975 MG PO (18:12)
--- NOTE | 2025-02-11 18:37 | PC.NURSE ---
Pt is doing well today. VSS. Denies pain. Pt continues to require 2L O2 NC to maintain sats >90%. Pt does become SOB and desats with activity. Pt did walk the in the halls twice this shift and sat in chair with meals. Pt is frequently using incentive spirometer and aerobika. Pt denies dizziness or lightheadedness with activity. Ambulating in room with standby assist.
[2025-02-11] MEDS: ENOXAPARIN 40 MG/0.4 ML INJ SUBCUT (21:08)
[2025-02-11] MEDS: cefTRIAXone 2 GM in 0.9 % SODIUM CHLORIDE Mini-bag 100 ML IVPB (22:21)
[2025-02-12] VITALS (10 sets, daily range): BP systolic 109–139; BP diastolic 58–76; PULSE 73–92; RESP 20–30; TEMP 36.7–37.2; O2SAT 92–95
--- NOTE | 2025-02-12 05:58 | PC.NURSE ---
End of shift report [id number]:?VSS. Afebrile.?Denies nausea. Denies pain.?Pt is on 2.5-2?L O2 via NC?to keep O2 sats above 90%. Pt has SOB with exertion, denies light headiness or dizziness. Pt has a nonproductive cough.?Pt is?utilizing?the?aerobika/incentive spirometer?frequently when awake.?Pt ambulates?ind?in?room, call light within reach.??
--- NOTE | 2025-02-12 06:07 | PC.NURSE ---
End of shift report?: VSS. Afebrile. Pt complained?of tingling?to L?upper forehead area?for the majority of the shift, MD Correia notified.?Neuros are intact.?Pt reports tingling resolved this morning.?Pt also complains of a headache?near the L temporal region?rating?it?an 8/10.?Prn pain meds?and an ice pack?given without relief, MD Correia contacted and sumatriptan?and prednisone?was ordered and given. Upon?reassessment,?pt is sleeping. In the morning?when asked about pain relief,?patient?reports?improvement rating it a 3/10. Pt is?ind?in?room, call light within reach.?
[2025-02-12] MEDS: guaiFENesin 600 MG TAB.ER.12H PO ×2 (08:36→20:34)
[2025-02-12] MEDS: ACETAMINOPHEN 325 MG TABLET 975 MG PO (12:01)
--- NOTE | 2025-02-12 16:06 | PM.IMPN1 ---
Assessment and Plan Assessment and plan (1) Orthostatic hypotension: Problem comment: 02/12/2025 no longer orthostatic. Was orthostatic when 1st presented. Status: Acute (2) Respiratory failure: Problem comment: Acute hypoxic respiratory failure. Likely due to pulmonary infiltrate. Status: Acute (3) Pneumonia: Problem comment: Community-acquired pneumonia. Continue on IV antibiotics at this time. Status: Acute (4) Hypoxia: Status: Acute (5) Hyponatremia: Problem comment: Sodium stable at 133. Will impose a 2000 mL fluid restriction per day. Status: Acute (6) Sepsis: Problem comment: Improved Status: Acute Plan 1. Reviewed impression, plans, recommendations with patient 2. Answered her questions to her satisfaction 3. Patient agreeable with above stated plans and recommendations Total Time Spent Total Time Spent: 40 minutes Subjective Date Seen: 02/12/25 Interval history: Admission of history of present illness: ?64-year-old female with past medical history significant for obesity, anxiety, hyperlipidemia, sinusitis with mucous retention cyst status post right maxillary antrostomy with tissue removal and removal of right antral mucous retention cyst on 11/03/2024, now presents to the emergency department after syncopal episode earlier today. Patient was initially evaluated on 02/03/2025 for 3-day history of nonproductive cough as well as body aches and generalized malaise. At that time she was prescribed an albuterol inhaler and sent home. She re- presented to urgent care on 02/08/2025 with worsening cough and shortness of breath as well as low-grade fevers and lightheadedness. She has been taking Tylenol and ibuprofen for fever as well as body aches. Vital signs at that time noted to be 94% pulse ox on room air. Chest x-ray notable for faint diffuse reticulonodular opacities concerning for acute infection or inflammatory process on 02/08/2025 CBC on 02/08/2025 notable for WBC count 13 with 84% neutrophils. Patient was diagnosed with community-acquired pneumonia and given amoxicillin 1 g 3 times daily for 5 days. Patient was seen on 02/09/2025 in the emergency department with worsening shortness of breath as well as fever of 99-1 01. O2 sat at home was noted to be 84 to 86%. Patient was also noted to be feeling lightheaded. CT PE notable for diffuse bilateral pulmonary micronodularity and consolidative opacities indicative of multifocal infectious inflammatory process with diffuse bronchial wall thickening and distal and endobronchial mucous plugging. Prominent mediastinal and bilateral hilar lymph nodes were also noted. Patient was given a dose of Rocephin in the emergency room and azithromycin was added on discharge in addition to her amoxicillin course. Patient subsequently Kathi presented to the emergency department today with syncopal episode. Fever was notably 102. Patient is also noted nausea over the past 2 days. She states along with the fever she is getting splitting headaches. She had 2 grandsons that had RSV 2 weeks prior to admission. She also notes body aches as well as chills. She denies any chest pain or palpitations. She does note decreased p.o. intake. Today her son caught her against the wall prior to falling onto the floor. She did endorse worsening lightheadedness today that has worsened since symptom onset approximately 10 days prior to admission. Patient does not smoke. She denies any dysuria. She also denies any diarrhea or constipation. She does note chills as well as sweats. ?In the emergency department she was noted to have a WBC count of 11.28, hemoglobin 12.3, platelet count 477. Sodium of 133, potassium of 3.8, BUN of 16, creatinine 0.7. Lactic acid 1.1. LFTs currently pending. Troponin was noted to be negative. CRP 16.9. Of note AST 39 ALT 74 and alk phos 700 on 02/09/2025. Patient was also noted to be orthostatic. Patient was given ceftriaxone 1 g, azithromycin 500 mg IV, 1 L normal saline and subsequently admitted for further management. In the emergency department she also required 2 L nasal cannula to maintain an O2 sat of 92%.? 02/12/2025, hospital day 2. Generally improved. Satisfied with progress. Dry hacky cough still. Tolerating increased activities. Exam Narrative: Exam Narrative: Examine her in her hospital room. Appears comfortable. On oxygen supplementation to maintain resting oxygen saturation values greater than 88%. Cooperative and friendly. Bibasilar rales right greater than left, with scattered rhonchi. Chest wall excursions are full. Heart tones with regular rhythm, normal S1-S2. No obvious murmur, gallop, rub. Extremities without edema. Moves all 4 extremities. Const: Vital Signs, click to edit/add: Vital Signs - 24 hr 02/11/25 18:00 02/11/25 18:12 02/11/25 18:54 Temperature 37.7 C H 37.8 C H 37.1 C Pulse Rate [Pulse Oximeter] Pulse Rate [orthos tatic lying Pulse Oximeter] Pulse Rate [orthos tatic sitting Puls e Oximeter] Pulse Rate [orthos tatic standing Pul se Oximeter] Respiratory Rate Blood Pressure [Ri ght Arm] Blood Pressure [or thostatic lying Ri ght Arm] Blood Pressure [or thostatic sitting Right Arm] Blood Pressure [or thostatic standing Right Arm] Pulse Oximetry Oxygen Delivery Me thod Oxygen Flow Rate 02/11/25 19:00 02/11/25 22:02 02/11/25 23:00 Temperature 36.9 C Pulse Rate [Pulse Oximeter] 97 Pulse Rate [orthos tatic lying Pulse Oximeter] Pulse Rate [orthos tatic sitting Puls e Oximeter] Pulse Rate [orthos tatic standing Pul se Oximeter] Respiratory Rate 20 20 24 Blood Pressure [Ri ght Arm] 132/74 Blood Pressure [or thostatic lying Ri ght Arm] Blood Pressure [or thostatic sitting Right Arm] Blood Pressure [or thostatic standing Right Arm] Pulse Oximetry 90 91 Oxygen Delivery Me thod Nasal Cannula Nasal Cannula Oxygen Flow Rate 2.5 2.5 02/11/25 23:00 02/12/25 03:00 02/12/25 06:00 Temperature 36.4 C 36.8 C Pulse Rate [Pulse Oximeter] 78 79 Pulse Rate [orthos tatic lying Pulse Oximeter] 80 Pulse Rate [orthos tatic sitting Puls e Oximeter] 82 Pulse Rate [orthos tatic standing Pul se Oximeter] 92 Respiratory Rate 24 24 Blood Pressure [Ri ght Arm] 125/64 128/76 Blood Pressure [or thostatic lying Ri ght Arm] 131/68 Blood Pressure [or thostatic sitting Right Arm] 121/61 Blood Pressure [or thostatic standing Right Arm] 109/58 L Pulse Oximetry 91 92 Oxygen Delivery Me thod Nasal Cannula Nasal Cannula Oxygen Flow Rate 2.5 2 02/12/25 07:00 02/12/25 07:00 02/12/25 07:00 Temperature 37.1 C Pulse Rate [Pulse Oximeter] 85 85 Pulse Rate [orthos tatic lying Pulse Oximeter] Pulse Rate [orthos tatic sitting Puls e Oximeter] Pulse Rate [orthos tatic standing Pul se Oximeter] Respiratory Rate 20 20 20 Blood Pressure [Ri ght Arm] 123/66 Blood Pressure [or thostatic lying Ri ght Arm] Blood Pressure [or thostatic sitting Right Arm] Blood Pressure [or thostatic standing Right Arm] Pulse Oximetry 94 92 Oxygen Delivery Me thod Room Air Nasal Cannula Oxygen Flow Rate 02/12/25 11:00 02/12/25 12:01 02/12/25 15:00 Temperature 37.2 C 37.2 C Pulse Rate [Pulse Oximeter] 79 Pulse Rate [orthos tatic lying Pulse Oximeter] Pulse Rate [orthos tatic sitting Puls e Oximeter] Pulse Rate [orthos tatic standing Pul se Oximeter] Respiratory Rate 30 H 28 H Blood Pressure [Ri ght Arm] 118/69 Blood Pressure [or thostatic lying Ri ght Arm] Blood Pressure [or thostatic sitting Right Arm] Blood Pressure [or thostatic standing Right Arm] Pulse Oximetry 92 94 Oxygen Delivery Me thod Nasal Cannula Nasal Cannula Oxygen Flow Rate 2 2 02/12/25 15:00 Temperature 36.7 C Pulse Rate [Pulse Oximeter] 73 Pulse Rate [orthos tatic lying Pulse Oximeter] Pulse Rate [orthos tatic sitting Puls e Oximeter] Pulse Rate [orthos tatic standing Pul se Oximeter] Respiratory Rate 28 H Blood Pressure [Ri ght Arm] 125/72 Blood Pressure [or thostatic lying Ri ght Arm] Blood Pressure [or thostatic sitting Right Arm] Blood Pressure [or thostatic standing Right Arm] Pulse Oximetry 93 Oxygen Delivery Me thod Nasal Cannula Oxygen Flow Rate 2
--- NOTE | 2025-02-12 19:42 | PC.NURSE ---
End of shift-- Very pleasant and cooperative, alert and oriented pt. VSS and highest temp this shift 98.9F. SPO2 maintained >90% on 2L per n.c. She denied any pain. A few fine crackles auscultated in posterior bases of lungs this morning, clear this afternoon. She denied nausea, tolerated a regular diet and was up independently for a shower and a walk today and tolerated it fair. Pt was exhausted following. Report to PEALR Denny.
[2025-02-12] MEDS: ENOXAPARIN 40 MG/0.4 ML INJ SUBCUT (20:34)
[2025-02-12] MEDS: SERTRALINE 100 MG TABLET PO (20:34)
[2025-02-12] MEDS: AZITHROMYCIN 500 MG in 0.9 % SODIUM CHLORIDE 250 ml 250 ML 255 MG IVPB (20:35)
[2025-02-12] MEDS: cefTRIAXone 2 GM in 0.9 % SODIUM CHLORIDE Mini-bag 100 ML IVPB (22:10)
[2025-02-13 03:09] VITALS: BP 124/68; PULSE 84; RESP 24; TEMP 36.8; O2SAT 93
[2025-02-13 07:21] LABS: Hematocrit* 35.7 % (33.0-51.0); Hemoglobin* 11.0 gm/dL (12.0-16.0); Mean Corpuscular HGB Conc 31 gm/dL (32-36); Mean Corpuscular Hemoglobin 27 pg (26-34); Mean Corpuscular Volume 88 fL (80-100); Red Blood Count* 4.07 m/uL (4.00-5.20); White Blood Count* 9.30 K/uL (4.50-11.00)
[2025-02-13 07:26] LABS: HCO3 VBG 29 mmol/L (21-28); Lactate* 0.8 mmol/L (0.5-1.9); PCO2 VBG 46 mmHG (40-50); PO2 VBG < 30.1 mmHG (25-47); pH VBG 7.400 (7.32-7.43)
[2025-02-13 07:28] LABS: Chloride* 105 mmol/L (96-114)
[2025-02-13 07:29] LABS: Albumin* 2.9 g/dL (3.3-5.0); Potassium* 4.7 mmol/L (3.6-5.1); Slide Review Reflex No; Sodium* 136 mmol/L (135-149)
[2025-02-13 07:32] LABS: Alanine Aminotransferase* 95 U/L (4-35); Anion Gap 2 mEq/L (7-15); Aspartate Amino Transferase* 49 U/L (12-35); Blood Urea Nitrogen* 7 mg/dL (7-30); Carbon Dioxide* 29 mmol/L (20-32); Creatinine* 0.6 mg/dL (0.5-1.5); Est. Creatinine Clearance* 62.27; Estimated Glomerular Filt Rate 101 ml/min
--- NOTE | 2025-02-13 07:32 | PC.NURSE ---
End of shift report:?VSS. Afebrile.?Denies nausea. Denies pain.?Pt is on?1.5?L O2 via NC?to keep O2 sats above 90%. Pt has SOB with exertion, denies light headiness or dizziness. Pt has a nonproductive cough.?Pt is?utilizing?the?aerobika/incentive spirometer?Q1H when awake.?Pt ambulates?ind?in?room, call light within reach.??
[2025-02-13 07:33] LABS: Alkaline Phosphatase* 629 U/L (40-150); Bilirubin Direct* 0.2 mg/dL (0.0-0.5); Bilirubin Total* 0.3 mg/dL (0.1-1.5); Calcium* 8.4 mg/dL (8.4-10.6); Gamma Glutamyl Transpeptidase* 303 U/L (8-55); Glucose* 100 mg/dL (60-115); Total Protein* 5.8 g/dL (6.0-8.3)
[2025-02-13 07:49] LABS: Procalcitonin* 0.08 ng/mL (<0.50)
[2025-02-13 08:00] VITALS: BP 127/72; PULSE 78; RESP 22; TEMP 36.7; O2SAT 90
[2025-02-13] MEDS: ALBUTEROL SULFATE 2.5 MG/3 ML VIAL.NEB NEB (08:49)
[2025-02-13] MEDS: guaiFENesin 600 MG TAB.ER.12H PO (08:49)
[2025-02-13] MEDS: SODIUM CHLORIDE 0.9 % (FLUSH) 10 ML SYRINGE 5 ML IVF (08:49)
[2025-02-13 11:40] VITALS: BP 119/68; PULSE 83; RESP 20; TEMP 37; O2SAT 91
--- NOTE | 2025-02-13 14:08 | PC.NURSE ---
discharge, pt has been very pleasant. she is alert x4. no pain. she was on o2 and put her on RA this am. she was 89-93% on RA no SOB today she is up ab iris. teds are on and off. she has a nonproductive cough.?Pt is?utilizing?the?aerobika/incentive spirometer ?Q1H when awake.?Pt ambulates?ind?in?room, call light within reach.??went over discharge packet with pt. went over medications, appointments, education and instructions. pt went over and signed personal belonging sheet. she took all belongs and paperwork with her. she was offered and w/c ride out and declined.
--- NOTE | 2025-02-13 16:09 | P.DS_ITS ---
DS: Providers Provider Date Seen: 02/13/25 Date of admission: 02/11/25 01:02 Primary care physician: Diomedes Kevin MD Admitting Clinician: Penelope Nino MD Attending Physician on discharge: Ian Rasheed MD Date of Discharge: 02/13/25 DS: Diagnosis Discharge Diagnosis (1) Pneumonia: Status: Acute Problem details: Community-acquired pneumonia. Continue on IV antibiotics at this time: azithromycin and ceftriaxone. Change to oral azithromycin and cefdinir on date of discharge. (2) Sepsis: Status: Acute Problem details: Improved (3) Respiratory failure: Status: Acute Problem details: Acute hypoxic respiratory failure. Likely due to pulmonary infiltrate. Maintaining room air oxygen saturation values greater than 88% at rest and with activity on date of discharge (4) Orthostatic hypotension: Status: Acute Problem details: 02/12/2025 no longer orthostatic. Was orthostatic when 1st presented. (5) Hyponatremia: Status: Acute Problem details: Sodium stable at 133. Will impose a 2000 mL fluid restriction per day. Serum sodium up to 136 on date of discharge DS: Summary Hospital Course Hospital Course: Admission of history of present illness: ?64-year-old female with past medical history significant for obesity, anxiety, hyperlipidemia, sinusitis with mucous retention cyst status post right maxillary antrostomy with tissue removal and removal of right antral mucous retention cyst on 11/03/2024, now presents to the emergency department after syncopal episode earlier today. Patient was initially evaluated on 02/03/2025 for 3-day history of nonproductive cough as well as body aches and generalized malaise. At that time she was prescribed an albuterol inhaler and sent home. She re- presented to urgent care on 02/08/2025 with worsening cough and shortness of breath as well as low-grade fevers and lightheadedness. She has been taking Tylenol and ibuprofen for fever as well as body aches. Vital signs at that time noted to be 94% pulse ox on room air. Chest x-ray notable for faint diffuse reticulonodular opacities concerning for acute infection or inflammatory process on 02/08/2025 CBC on 02/08/2025 notable for WBC count 13 with 84% neutrophils. Patient was diagnosed with community-acquired pneumonia and given amoxicillin 1 g 3 times daily for 5 days. Patient was seen on 02/09/2025 in the emergency department with worsening shortness of breath as well as fever of 99-1 01. O2 sat at home was noted to be 84 to 86%. Patient was also noted to be feeling lightheaded. CT PE notable for diffuse bilateral pulmonary micronodularity and consolidative opacities indicative of multifocal infectious inflammatory process with diffuse bronchial wall thickening and distal and endobronchial mucous plugging. Prominent mediastinal and bilateral hilar lymph nodes were also noted. Patient was given a dose of Rocephin in the emergency room and azithromycin was added on discharge in addition to her amoxicillin course. Patient subsequently Kathi presented to the emergency department today with syncopal episode. Fever was notably 102. Patient is also noted nausea over the past 2 days. She states along with the fever she is getting splitting headaches. She had 2 grandsons that had RSV 2 weeks prior to admission. She also notes body aches as well as chills. She denies any chest pain or palpitations. She does note decreased p.o. intake. Today her son caught her against the wall prior to falling onto the floor. She did endorse worsening lightheadedness today that has worsened since symptom onset approximately 10 days prior to admission. Patient does not smoke. She denies any dysuria. She also denies any diarrhea or constipation. She does note chills as well as sweats. ?In the emergency department she was noted to have a WBC count of 11.28, hemoglobin 12.3, platelet count 477. Sodium of 133, potassium of 3.8, BUN of 16, creatinine 0.7. Lactic acid 1.1. LFTs currently pending. Troponin was noted to be negative. CRP 16.9. Of note AST 39 ALT 74 and alk phos 700 on 02/09/2025. Patient was also noted to be orthostatic. Patient was given ceftriaxone 1 g, azithromycin 500 mg IV, 1 L normal saline and subsequently admitted for further management. In the emergency department she also required 2 L nasal cannula to maintain an O2 sat of 92%.? 02/12/2025, hospital day 2. Generally improved. Satisfied with progress. Dry hacky cough still. Tolerating increased activities. 02/13/2025, HOSPITAL DAY 3 Much improved. Maintaining oxygen saturation values greater than 88% at rest and with exercise without any supplementation. Cough vastly improved. Denies orthostasis. Tolerating oral intake. States she is ready for discharge. Status at Discharge Functional status at discharge: independent ambulation Overall status at discharge: patient is progressing back to baseline Time Spent with Patient Time attestation: Total time spent providing and/or coordinating discharge services: Time spent: Greater than 30 minutes Exam Narrative: Exam Narrative: Examine her in her hospital room. Appears comfortable. On oxygen supplementation to maintain resting oxygen saturation values greater than 88%. Cooperative and friendly. Bibasilar rales right greater than left, with scattered rhonchi. Chest wall excursions are full. Heart tones with regular rhythm, normal S1-S2. No obvious murmur, gallop, rub. Extremities without edema. Moves all 4 extremities. Const: Vital Signs, click to edit/add: Vital Signs - 24 hr 02/12/25 19:00 02/12/25 19:45 02/12/25 22:31 Temperature 36.7 C 37.0 C Pulse Rate [Pulse Oximeter] 80 80 89 Respiratory Rate 24 24 26 H Blood Pressure [Ri t Arm] 134/76 139/76 Pulse Oximetry 94 95 Oxygen Delivery Me thod Nasal Cannula Nasal Cannula Oxygen Flow Rate 1.5 1.5 02/12/25 22:32 02/13/25 03:09 02/13/25 08:00 Temperature 36.8 C Pulse Rate [Pulse Oximeter] 84 Respiratory Rate 26 H 24 22 Blood Pressure [Ri ght Arm] 124/68 Pulse Oximetry 95 93 90 Oxygen Delivery Me thod Nasal Cannula Nasal Cannula Room Air Oxygen Flow Rate 1.5 1.5 02/13/25 08:00 02/13/25 08:00 02/13/25 11:40 Temperature 36.7 C 37.0 C Pulse Rate [Pulse Oximeter] 78 78 83 Respiratory Rate 22 22 20 Blood Pressure [Ri ght Arm] 127/72 119/68 Pulse Oximetry 90 91 Oxygen Delivery Me thod Room Air Room Air Oxygen Flow Rate DS: Data Data Completed and Pending Labs on day of discharge: Labs from last 24 hours 02/13/25 06:00 WBC 9.30 RBC 4.07 Hgb 11.0 L Hct 35.7 MCV 88 MCH 27 MCHC 31 L Plt Count 474 H VBG pH 7.400 VBG pCO2 46 VBG pO2 < 30.1 VBG HCO3 29 H Sodium 136 Potassium 4.7 Chloride 105 Carbon Dioxide 29 Anion Gap 2 L BUN 7 Creatinine 0.6 Estimated Creat Clear 62.27 Estimated GFR 101 Glucose 100 Lactate 0.8 Calcium 8.4 Phosphorus 4.0 Magnesium 1.9 Total Bilirubin 0.3 Direct Bilirubin 0.2 GGT 303 H AST 49 H ALT 95 H Alkaline Phosphatase 629 H C-Reactive Protein 16.2 H Total Protein 5.8 L Albumin 2.9 L Procalcitonin 0.08 Preliminary micro results at discharge 02/12/25 11:58 Sputum Culture - Preliminary Sputum - Expectorated Sputum Culture in Progress 02/10/25 21:44 Blood Culture - Preliminary Blood NO GROWTH AFTER 48 HOURS 02/10/25 20:50 Blood Culture - Preliminary Blood NO GROWTH AFTER [address] Chest/Ab/Pelvis: Attestation: I have reviewed the pertinent imaging results. Radiologist's impression: IMPRESSION: 1. No pulmonary embolism. 2. Diffuse bilateral pulmonary micronodularity and nodular/consolidative opacities, indicative of multifocal infectious/inflammatory process with additional mild diffuse bronchial wall thickening and distal endobronchial mucous plugging. Recommend follow-up CT chest following therapy to assess for resolution and exclude underlying neoplastic process. 3. Cardiomegaly with trace bilateral pleural effusions and mild interlobular septal thickening which may reflect mild superimposed pulmonary edema. 4. Prominent mediastinal and bilateral hilar lymph nodes, likely reactive. Attention on follow-up imaging recommended. IMPRESSION: No acute abnormality in abdomen and pelvis. Multiple tree-in-bud nodular opacities in the included lung colbert with minimal bilateral pleural effusion, findings are concerning for possibly endobronchial infection. Few incompletely assessed hypodense liver lesions, most likely related to hemangioma. Further assessment with nonurgent ultrasound would be of help. US - abdomen: Radiologist's impression: Impression: 1. Gallbladder and common bile duct appear normal. 2. Hepatic echogenicity is overall normal. No intrahepatic biliary ductal dilation. 3. There are multiple masses most of which have imaging features of hemangiomas. However, 1 of the conglomerate mass in the right lobe has atypical features for a hemangioma by sonography. Specifically, the central portion is not homogeneously hyperechoic. Hemangioma remains the most likely diagnosis. Due to the lack of prior studies for comparison and the abnormal liver function tests, recommended MRI at a clinically appropriate time for further evaluation. Discharge Plan Discharge Disposition: Home, Self-Care Date of Admission: 02/11/25 01:02 Attending Provider on Discharge: Ian Rasheed Primary Care Provider: Diomedes Kevin Condition: Improved Anticipated Discharge Date/Time: 02/13/25 13:00 Discharge Medications: New guaifenesin [Mucinex] 600 mg Tablet Extended Release 12hr 600 mg PO BID PRN7 Days Qty: 14 0RF azithromycin [Zithromax] 250 mg tablet 250 mg PO DAILY 3 Days Qty: 3 0RF cefdinir 300 mg capsule 300 mg PO BID Qty: 10 0RF Continued albuterol sulfate 90 mcg/actuation HFA aerosol inhaler 2 puff inhalation QID Qty: 6.7 3RF Zepbound 15 mg/0.5 mL pen injector 15 mg subcut .WEEKLY sertraline 100 mg tablet 100 mg PO DAILY Discontinued amoxicillin 500 mg capsule 1,000 mg PO TID 5 Days Qty: 30 0RF Discharge Orders: Discharge Order (Routine); Ordered 02/13/25 Ordered By: Ian Rasheed Patient Education: Guaifenesin (By mouth), Azithromycin (By mouth), Cefdinir (By mouth), How to Use a Metered-Dose Inhaler (DC), Community Acquired Pneumonia (DC) Additional Instructions: 1. Increase activity as tolerated 2. Use AEROBIKA device hourly while awake as needed to help clear mucous in chest and throat 3. Follow-up with primary career placement services counselor in 3-15 days with previsit sodium level 4. Return to clinic or hospital sooner if needed Activity Level: No Restrictions and Activity as Tolerated Discharge Diet: Regular Follow Up Appointments: Diomedes Kevin MD [Primary Care Provider, Internal Medicine] - 02/25/25 3:15 pm Referral Note: [facility] for hospital follow-up. Forms: [employer] Info Instructions
== END 2025-02-13 13:15 | disposition home or self-care (01) | DRG 193 ==
LOC: ED 21:16 → MEDSURG 02-11 01:11
PROVIDERS: Internal Medicine; Admitting Provider Internal Medicine; Emergency Provider Family Medicine; PCP Internal Medicine; Visit Provider Internal Medicine
DX: J18.9 Pneumonia, unspecified organism (principal); A41.9 Sepsis, unspecified organism; J96.01 Acute respiratory failure with hypoxia; E87.1 Hypo-osmolality and hyponatremia; E66.9 Obesity, unspecified; Z68.32 Body mass index [BMI] 32.0-32.9, adult; I95.1 Orthostatic hypotension; Z79.899 Other long term (current) drug therapy; F41.9 Anxiety disorder, unspecified; E78.5 Hyperlipidemia, unspecified; R79.89 Other specified abnormal findings of blood chemistry; Z86.711 Personal history of pulmonary embolism
CPT/HCPCS: 36415; 74177; 76705; 80048; 80076; 82803; 82977; 83605; 83735; 83880; 84100; 84145; 84484; 85025; 85027; 86140; 87040; 87070; 87205; 87449; 87899; 93005; 94640; 94664; 94761; 99284; 99291; A9270; J0456; J0696; J1650; J1885; J2405; J7030; J7050; Q9967